=== PATIENT | female | born 1955 | race Caucasian/White ===

== ENCOUNTER 2019-08-07 13:05 | Outpatient (CLI) | payer OTHER, SELFPAY ==
--- NOTE | ~2019-08-07 | MMUS_ITS ---
EXAMINATION: MM diagnostic mikel BI w juan, US breast BI complete HISTORY: Bilateral nipple discharge TECHNIQUE: ML, MLO and cc 3-D tomosynthesis images of both breasts were performed and synthetic 2-D i mages were generated. Additional spot compression views of right breast. Rolled medial and rolled lat eral craniocaudal right mammographic views. CAD analysis was submitted and interpreted. High resoluti on complete bilateral breast ultrasound was performed. COMPARISON: 02/19/2019, 02/07/2018, 01/11/2017 bilateral digital screening mammogram examinations BREAST PARENCHYMAL COMPOSITION: There are scattered areas of fibroglandular density. FINDINGS: MAMMOGRAPHIC FINDINGS: Stable mild fibroglandular asymmetry. No interval suspicious mass, architectural distortion, malignan t calcification, skin thickening or retraction or significant new or developing density of either coy ast is evident. Occasional benign calcifications are noted. Given the history of bilateral nipple discharge, bilateral complete breast ultrasound examination was performed. ULTRASOUND: There is no evidence of focal abnormal solid or cystic lesion of either breast. Cysts are identified in the left breast at 3:00 and 11:00 position, measuring up to 4.6 and 5.5 mm ma ximal dimension, respectively. IMPRESSION: 1. No mammographic evidence of malignancy 2. Routine mammographic screening is recommended. BI-RADS Category 2: Benign finding(s). Reviewed, dictated and finalized at location A. IMPRESSION: 1. No mammographic evidence of malignancy 2. Routine mammographic screening is recommended. BI-RADS Category 2: Benign finding(s).
== END 2019-08-07 13:06 | disposition home or self-care (01) ==
PROVIDERS: PCP Nurse Practitioner Adult Health; Visit Provider Obstetrics & Gynecology
DX: N64.52 Nipple discharge (principal)
CPT/HCPCS: 76641; 77062; 77066; G0279

== ENCOUNTER → 2020-12-14 15:09 | Outpatient (CLI) | payer MEDICARE, SELFPAY ==
--- NOTE | ~2020-12-14 | MM_ITS ---
EXAMINATION: MM screening mikel BI w juan HISTORY: Screening TECHNIQUE: Craniocaudal and mediolateral oblique 3-D tomosynthesis images were obtained and synthetic 2-D images were generated. CAD analysis was submitted and interpreted. COMPARISON: Comparison to multiple prior studies sequentially, with oldest reviewed study dated 12/05. BREAST PARENCHYMAL COMPOSITION: Breast composed of scattered areas of fibroglandular density. FINDINGS: There are subtle developing asymmetries with possible architectural distortion in the subar eolar location of the right breast. The left breast is stable without evidence for malignancy. IMPRESSION: 1. Developing subtle right breast asymmetries. 2. Additional mammographic views and possible breast ultrasound are recommended. BI-RADS Category 0: Incomplete: Needs additional imaging evaluation. Reviewed, dictated and finalized at location A. IMPRESSION: 1. Developing subtle right breast asymmetries. 2. Additional mammographic views and possible breast ultrasound are recommended . BI-RADS Category 0: Incomplete: Needs additional imaging evaluation.
== END ==
PROVIDERS: PCP Nurse Practitioner Adult Health; Visit Provider Obstetrics & Gynecology
DX: Z12.31 Encounter for screening mammogram for malignant neoplasm of breast (principal); R92.0 Mammographic microcalcification found on diagnostic imaging of breast
CPT/HCPCS: 77063; 77067

== ENCOUNTER → 2020-12-18 09:11 | Outpatient (CLI) | payer MEDICARE, SELFPAY ==
--- NOTE | ~2020-12-18 | MMUS_ITS ---
EXAMINATION: MM diagnostic mikel RT w juan, US breast RT limited HISTORY: Follow-up developing right breast asymmetries TECHNIQUE: Additional 3-D tomosynthesis images of the right breast were performed and synthetic 2-D i mages were generated. CAD analysis was submitted and interpreted. High resolution Limited right breas t ultrasound was performed. COMPARISON: Comparison to multiple prior studies sequentially, with oldest reviewed study dated 12/05. BREAST PARENCHYMAL COMPOSITION: Breast composed of scattered areas of fibroglandular density. FINDINGS: MAMMOGRAPHIC FINDINGS: There are no discrete masses, calcifications or architectural distortion in the right breast to sugge st malignancy. Focal asymmetries are less apparent with spot compression and mediolateral views. ULTRASOUND: Right breast ultrasound: At 6:00 near the areola there is a 4 mm cyst. At 7-8:00, 3 cm from the nippl e, there is a slightly irregular hypoechoic mass measuring 5 mm without posterior features or interna l vascularity. At 9:00 near the nipple there is an irregular shaped hypoechoic mass measuring 8 x 6 x 5 mm without posterior features. There is marginal vascularity. Near the nipple there is a 9 mm cyst . IMPRESSION: 1. Slightly irregular shaped right breast masses by ultrasound at 7-8:00, 3 cm from the nipple measur ing 5 mm and 9:00 near the nipple measuring 8 mm. 2. Ultrasound-guided right breast biopsies recommended. BI-RADS category 4, suspicious findings. Reviewed, dictated and finalized at location A. IMPRESSION: 1. Slightly irregular shaped right breast masses by ultrasound at 7-8:00, 3 cm from the nipple measuring 5 mm and 9:00 near the nipple measuring 8 mm. 2. Ultrasound-guided right breast biopsies recommended. BI-RADS category 4, suspicious findings.
== END ==
PROVIDERS: PCP Nurse Practitioner Adult Health; Visit Provider Obstetrics & Gynecology
DX: R92.8 Other abnormal and inconclusive findings on diagnostic imaging of breast (principal)
CPT/HCPCS: 76642; 77061; 77065; G0279

== ENCOUNTER 2021-02-01 10:05 | Outpatient (CLI) | payer MEDICARE, SELFPAY ==
[2021-02-01 11:09] LABS: Anion Gap 6 mmol/L (8-16); Blood Urea Nitrogen 17 mg/dL (7-17); Calcium 9.8 mg/dL (8.4-10.2); Carbon Dioxide 30 mmol/L (22-30); Chloride 102 mmol/L (98-107); Estimated Glomerular Filt Rate > 60; Glucose 130 mg/dL (65-110); Potassium 3.3 mmol/L (3.4-5.0); Sodium 138 mmol/L (137-145)
== END 2021-02-01 10:06 | disposition home or self-care (01) ==
LOC: ANHSURGERY 10:07
PROVIDERS: Anesthesiology; PCP Nurse Practitioner Adult Health; Visit Provider Obstetrics & Gynecology
DX: Z01.818 Encounter for other preprocedural examination (principal); E11.9 Type 2 diabetes mellitus without complications
CPT/HCPCS: 36415; 80048

== ENCOUNTER 2021-02-05 01:48 | Day surgery (SDC) | payer MEDICARE, SELFPAY ==
[2021-01-25 09:08] VITALS: BMI 35.0
--- NOTE | 2021-01-25 09:16 | PC.NURSE ---
Report to the Outpatient Waiting Room, entrance under the green pavilion located off [facility], at time _1000__ on date _02/05/21_. OR Time: _1200__. - You and your visitor will be asked a series of questions to screen for COVID 19 for your protection. - A mask is required within the hospital. - Only one visitor is allowed at this time. Patient visitors will be guided where to wait when not with patient. Preoperative COVID Testing Requirements: No COVID Test needed if: (proof is required; if not received patient will have Rapid Test prior to entry) - Patient has received COVID Vaccine at least 14 days prior to procedure date or - Patient has positive COVID test result within last 90 days of surgery date. COVID Test needed if above criteria is not met If not COVID vaccinated a COVID test must be conducted within 72 hours of surgery and patient is asked to isolate self from time of testing until procedure. You will go to the [facility] for your COVID testing. The [facility] site is located at the corner of [address] [facility]. You will only be called if COVID results are positive and your surgeon may reschedule your elective surgery date. Patients may have clear liquids (water, carbonated beverages, clear teas, apple juice) until 3 hours prior to surgery (0900 AM) with a maximum of 20 ounces. - No food from midnight until time of surgery - Infants may have breast milk until 4 hours before surgery, infant formula 6 hours prior to surgery. - Children will be allowed to drink immediately following surgery. If applicable, please bring a bottle or sippy cup to assist with drinking. Juice, water, soda, and popsicles are readily available. For infants on formula, please bring formula the day of surgery. Pacifiers are allowed. Take the following medications with a SIP of water the morning of surgery: __PROPRANOLOL____ Medications to discontinue per physician __ALL VITAMINS & SUPPLEMENTS Date to take last dose___02/01/21 Please no make-up, nail maltese, hairspray, perfume, deodorant, or body powder the day of surgery. No jewelry (including any body piercings) or valuables the day of surgery, leave them at home. Please take a shower or bath the night before, or the morning of, surgery with an antibacterial soap. Wear comfortable, loose fitting clothing. Children are encouraged to wear pajamas. - Jewelry must be removed prior to entering the operating room. Rings and piercings that are not removed may be cut off. - The hospital will not accept responsibility for valuables. - Please leave all valuables, including medications, at home the day of surgery. If you are going home after surgery, a licensed catshovel driver must drive you home. - NO public transportation without another adult. - We recommend that an adult stay with you for 24 hours following discharge. - We also recommend that you do not drive, make important decision, drink alcoholic beverages, or take any drugs that were not prescribed by your health care provider for at least 24 hours after your discharge time. For Pediatric surgeries, we recommend two adults accompany the child home (only one inside the building at this time). Follow any additional instructions given to you from your surgeon. - CALL DR. LELA WILLIAMSON'S OFFICE REGARDING ASPIRIN Telephone instructions given to ___PT and asked if any additional questions and then verbalized understanding. Patient advised to call surgeon office or pre surgery nurse liaison [phone] if any additional questions.
--- NOTE | 2021-02-02 13:05 | PM.IMHP ---
H&P: HPI History of Present Illness Date/Time: 02/02/21 13:05 65 old admitted for hysteroscopy and dilatation curettage secondary to vaginal bleeding. She has a history of endometrial polyps. Ultrasound shows some fluid in the endometrial canal and she is thus admitted for the above-named procedure. Risks and benefits reviewed Chief Complaint: Postmenopausal bleed on Review of Systems Review of Systems: All systems reviewed & are unremarkable except as noted in HPI and below PMFSH Social History Social History Smoking status: Never smoker Second hand tobacco smoke exposure: No Alcohol intake: current Alcohol use details: STATES MAYBE 2-3/MONTH Substance use: never Substance use type: does not use Spiritual care concerns: No Meds Home Medications and Allergies Home Medications Medication Instructions Recorded Confirmed Type Lactobac 40-Bifido 3-S.thermop 0.5 cap PO DAILY 01/25/21 01/25/21 History [Probiotic] allopurinol 100 mg HS 01/25/21 01/25/21 History ascorbic acid (vitamin C) [Vitamin 1 cap PO DAILY 01/25/21 01/25/21 History C] aspirin [Aspir-81] 81 mg PO DAILY 01/25/21 01/25/21 History cholecalciferol (vitamin D3) 100 mcg PO DAILY 01/25/21 01/25/21 History cranberry 8,400 mg PO DAILY 01/25/21 01/25/21 History dulaglutide [Trulicity] 0.75 mg SUBCUT WEEKLY 01/25/21 01/25/21 History lisinopril-hydrochlorothiazide 1 tablet QAM 01/25/21 01/25/21 History magnesium 750 mg PO DAILY 01/25/21 01/25/21 History multivitamin [Multi-Vitamin] 1 tablet PO DAILY 01/25/21 01/25/21 History propranolol 80 mg PO QAM 01/25/21 01/25/21 History rizatriptan [Maxalt] 10 mg PO ONCE PRN 01/25/21 01/25/21 History Allergies Allergy/AdvReac Type Severity Reaction Status Date / Time codeine Allergy Severe NAUSEA AND Verified 02/24/18 09:00 VOMITING naproxen Allergy Severe GI ULCER Unverified 02/24/18 09:00 Tetanus Vaccines and Toxoid Allergy Severe Hives / Verified 02/24/18 09:00 Red Face erythromycin base Allergy Intermediate N/V Unverified 02/24/18 09:00 Penicillins Allergy Mild SEVERE RASH Unverified 02/24/18 09:00 topiramate AdvReac Unknown Numbness-TO Unverified 01/25/21 08:55 HEARD & ARMS/HANDS adhesive tape AdvReac Itching & Verified 01/25/21 08:59 BLISTERS Antihistamines - Alkylamine AdvReac Hives Verified 01/25/21 08:59 metformin AdvReac Nausea and Verified 01/25/21 08:59 Vomiting nabumetone [From Relafen] AdvReac Itching / Verified 01/25/21 08:59 RASH sitagliptin [From Januvia] AdvReac Nausea and Verified 01/25/21 08:59 Vomiting Uijmway-ONO-TlJ Reductase AdvReac SHOOTING Verified 01/25/21 08:59 Inhibitor PAINS DOWN BILATERAL LEGS PHETERMINE AdvReac Difficulty Uncoded 01/25/21 08:59 Breathing Exam Const: General: no acute distress Eyes: General: appearance normal, both eyes and all related structures Neck: Neck: supple and no JVD Thyroid: thyroid normal Resp: Effort & Inspection: normal respiratory effort Auscultation: clear to auscultation bilaterally Cardio: Rate: regular rate Rhythm: regular rhythm GI: Inspection: non-distended GI Palp: Yes Soft to palpation, No Tenderness to palpation present (GI) and No Guarding due to palpation present (GI) Auscultation: normal bowel sounds : External Female Exam: normal external appearance Speculum Exam - Vagina: normal appearance of the vagina Speculum Exam - Cervix: normal appearance of the cervix Bimanual exam- vagina & uterus: non-tender Bimanual Exam- Adnexa, other: no masses Skin: General skin exam: no rashes or lesions noted Extrem: General: normal to inspection and no edema Psych: Mental Status: mental status grossly normal Affect: normal affect Assessment and Plan Additional Plan Impression: Postmenopausal bleeding Plan: Hysteroscopy/dilatation and curettage
--- NOTE | 2021-02-05 07:03 | WPDHPUPDATE1 ---
History and Physical Update Update Date/Time: 02/05/21 07:03 History and Physical has been reviewed, including an updated exam of the patient. There are NO changes in the patient's condition. Risks, benefits, and alternatives have been discussed and questions answered. Patient agrees to proceed with procedure.
[2021-02-05] MEDS: ACETAMINOPHEN 500 MG TABLET 1000 MG PO (08:55)
[2021-02-05] MEDS: LACTATED RINGERS 1,000 ML 30 ML IV CONT (09:20)
--- NOTE | 2021-02-05 09:27 | WPDANESEPPF ---
Anes - Initial Pre Proc Eval Procedure: Operation Date: 02/05/21 10:30 Proposed Procedures p Hysteroscopy, Dilation and Curettage - Patrick Person MD Date/Time: 02/05/21 09:27 Surgeon: Patrick Person MD Pre Op Diagnosis: post menopausal bleeding Patient Data Age: 65 Gender: F Height: 1.65 m Weight: 95.45 kg Allergies Allergy/AdvReac Type Severity Reaction Status Date / Time codeine Allergy Severe NAUSEA AND Verified 02/24/18 09:00 VOMITING naproxen Allergy Severe GI ULCER Unverified 02/24/18 09:00 Tetanus Vaccines and Toxoid Allergy Severe Hives / Verified 02/24/18 09:00 Red Face erythromycin base Allergy Intermediate N/V Unverified 02/24/18 09:00 Penicillins Allergy Mild SEVERE RASH Unverified 02/24/18 09:00 topiramate AdvReac Unknown Numbness-TO Unverified 01/25/21 08:55 HEARD & ARMS/HANDS adhesive tape AdvReac Itching & Verified 01/25/21 08:59 BLISTERS Antihistamines - Alkylamine AdvReac Hives Verified 01/25/21 08:59 metformin AdvReac Nausea and Verified 01/25/21 08:59 Vomiting nabumetone [From Relafen] AdvReac Itching / Verified 01/25/21 08:59 RASH sitagliptin [From Januvia] AdvReac Nausea and Verified 01/25/21 08:59 Vomiting Lybiwih-MDQ-JkZ Reductase AdvReac SHOOTING Verified 01/25/21 08:59 Inhibitor PAINS DOWN BILATERAL LEGS PHETERMINE AdvReac Difficulty Uncoded 01/25/21 08:59 Breathing Home Medications Medication Instructions Recorded Confirmed Type Lactobac 40-Bifido 3-S.thermop 0.5 cap PO DAILY 01/25/21 02/05/21 History [Probiotic] allopurinol 100 mg HS 01/25/21 02/05/21 History ascorbic acid (vitamin C) [Vitamin 1 cap PO DAILY 01/25/21 02/05/21 History C] aspirin [Aspir-81] 81 mg PO DAILY 01/25/21 02/05/21 History cholecalciferol (vitamin D3) 100 mcg PO DAILY 01/25/21 02/05/21 History cranberry 8,400 mg PO DAILY 01/25/21 02/05/21 History dulaglutide [Trulicity] 0.75 mg SUBCUT WEEKLY 01/25/21 02/05/21 History lisinopril-hydrochlorothiazide 1 tablet QAM 01/25/21 02/05/21 History magnesium 750 mg PO DAILY 01/25/21 02/05/21 History multivitamin [Multi-Vitamin] 1 tablet PO DAILY 01/25/21 02/05/21 History propranolol 80 mg PO QAM 01/25/21 02/05/21 History rizatriptan [Maxalt] 10 mg PO ONCE PRN 01/25/21 02/05/21 History hydrocodone-acetaminophen 1 tablet PO Q4H PRN #20 tablet 02/05/21 Rx Patient hx anesthesia problems: none Family hx anesthesia problems: post op nausea/vomiting Results Review: All pre-operative results and documents have been reviewed as part of the pre-operative evaluation. [facility] Past Medical History Medical History Diabetes Hx of migraines Hyperlipidemia Hypertension Osteoarthritis Social History Social History Smoking status: Never smoker Second hand tobacco smoke exposure: No Alcohol intake: current Alcohol use details: STATES MAYBE 2-3/MONTH Substance use: never Substance use type: does not use Living arrangements: with family Spiritual care concerns: No Anes - Eval Final PreProcedure Day of Procedure 02/05/21 09:27 Patient weight: obese Heart: regular rate and rhythm Lungs: clear to auscultation Airway: Mallampati scale class II Neurological: alert and oriented Last oral intake: >/= 8 hours ASA classification: III Emergent: no Anesthetic plan: proceed Anesthesia type and monitoring: general GIVS and standard monitoring Results Review: All pre-operative results and documents have been reviewed as part of the pre-operative evaluation. Informed Consent: The patient's anesthetic plan and its attendant risks and benefits were discussed with the patient/family/POA. Questions were solicited and answers provided to the satisfaction of the patient/family/POA.
[2021-02-05 09:28] LABS: Glucose Point of Care 112 mg/dl (65-105)
[2021-02-05 09:33] VITALS: BP 153/74; PULSE 75; TEMP 36.8; O2SAT 100
--- NOTE | 2021-02-05 10:21 | W.PM.PROC2 ---
Procedure Note - Detailed Date of Procedure 02/05/21 Pre-op Diagnosis post menopausal bleeding Post-op Diagnosis same Procedure Performed Hysteroscopy/dilatation curettage/polypectomy Surgeon Patrick Person MD Anesthesia MAC and local Indications This 65-year-old female with postmenopausal bleeding Findings Uterus sounded to 8cm. Small uterine polyp was seen. Description of Procedure Patient was prepped draped in the sterile placed in the dorsal lithotomy position. Under excellent IV sedation a speculum placed in posterior fornix vagina. Anterior lip of the cervix grasped with single-tooth tenaculum and 2.5cc 1% xylocaine anesthesia placed at 2, 4, 8, 10:00 a.m. of the cervix. Uterus sounded 8cm. Serial dilatation with fragmented dilators performed followed by passes the 5mm visualizing hysteroscope. Normal saline was used as visualizing medium. A small polyp was seen at the fundus and this was grasped with the and taken in piecemeal by the uterine polyp forceps. Uterus was then scraped over the entire 360? until a good grating sound was heard. When no further tissue removed the procedure was terminated. The instruments removed. All sponge, needle, instrument counts were correct. There were no immediate complications Estimated Blood Loss 5 Drains No Packing No Pathology yes Complications No immediate complications Condition stable Disposition PACU
[2021-02-05 10:23] VITALS: BP 166/72; PULSE 74; RESP 14; O2SAT 97
[2021-02-05 10:42] LABS: Glucose Point of Care 96 mg/dl (65-105)
[2021-02-05 11:00] VITALS: BP 167/87; PULSE 66; RESP 16
== END 2021-02-05 11:15 | disposition home or self-care (01) ==
PROVIDERS: PCP Nurse Practitioner Adult Health; Visit Provider Obstetrics & Gynecology
PROC: 0U5B8ZZ Destruction of Endometrium, Via Natural or Artificial Opening Endoscopic (ICD-10-PCS; CPT 58563; principal; 2021-02-05 10:30)
DX: C54.1 Malignant neoplasm of endometrium (principal); N84.0 Polyp of corpus uteri; N95.0 Postmenopausal bleeding; Z79.82 Long term (current) use of aspirin; E11.9 Type 2 diabetes mellitus without complications; I10 Essential (primary) hypertension; M19.90 Unspecified osteoarthritis, unspecified site; E78.5 Hyperlipidemia, unspecified; E66.9 Obesity, unspecified; Z68.35 Body mass index [BMI] 35.0-35.9, adult
CPT/HCPCS: 58558; 82948; 88305; A9270; J2250; J2704; J3010; J7030; J7120

== ENCOUNTER 2021-02-15 12:54 | Outpatient (CLI) | payer MEDICARE, SELFPAY ==
--- NOTE | ~2021-02-15 | CT_ITS ---
EXAMINATION: CT abdomen pelvis w con DATE: 02/15/2021 13:19 INDICATION: Endometrioid adenocarcinoma. TECHNIQUE: Computed tomography (CT) of the abdomen and pelvis was performed [address] The dose-length product was 876.12 mGy-cm. Automated exposure control and iterative reconstructio n technique were employed. COMPARISON: None. FINDINGS: Lung bases are unremarkable. Heart size is normal. No significant pleural or pericardial ef fusion. There is a possible 3 mm distal right ureteral stone near the UVJ. No significant hydronephro sis. Fatty infiltration of the liver. Status post cholecystectomy. There are calcified granulomas of the s pleen. The pancreas, adrenal glands and kidneys are unremarkable. Nonobstructive bowel gas pattern. C olonic diverticulosis without evidence for diverticulitis. No free air or free fluid. Small amount of gas in the bladder lumen, likely from prior instrumentation. Clinically correlate. There is a hetero geneous hypodense appearance to the endometrium, compatible with known endometrioid adenocarcinoma. M ild osteoarthritis of the hips. Mild lumbar spondylosis. No focal lytic or blastic lesions. No signif icant vascular abnormality. No abdominal or pelvic lymphadenopathy. IMPRESSION: 1. Possible 3 mm distal right ureteral stone near the UVJ. This may also represents a small pelvic ph lebolith adjacent to the ureter. No associated hydronephrosis. 2: Heterogeneous appearance to the endometrium which appears thickened, compatible with known endome trioid adenocarcinoma. Reviewed, dictated and finalized at location A. [facility] IMPRESSION: 1. Possible 3 mm distal right ureteral stone near the UVJ. This may also repres ents a small pelvic phlebolith adjacent to the ureter. No associated hydronephr osis. 2: Heterogeneous appearance to the endometrium which appears thickened, compat ible with known endometrioid adenocarcinoma.
== END 2021-02-15 12:55 | disposition home or self-care (01) ==
LOC: ANHIMG 12:58
PROVIDERS: PCP Nurse Practitioner Adult Health; Visit Provider Obstetrics & Gynecology
DX: C54.1 Malignant neoplasm of endometrium (principal); Z90.49 Acquired absence of other specified parts of digestive tract; K57.30 Diverticulosis of large intestine without perforation or abscess without bleeding; M16.0 Bilateral primary osteoarthritis of hip
CPT/HCPCS: 74177; Q9967

== ENCOUNTER 2021-03-24 11:24 | Outpatient (CLI) | payer MEDICARE, SELFPAY ==
--- NOTE | 2021-03-24 11:30 | ECG_ITS ---
Measurements Intervals [place] Rate: 73 P: 51 AL: 177 QRS: 28 QRSD: 101 T: 23 QT: 389 QTc: 430 Interpretive Statements SINUS RHYTHM BORDERLINE ST-T WAVE ABNORMALITY- INFERIOR LEADS BASELINE ARTIFACT- I, II, III, AVR, AVL, AVF BORDERLINE ECG Electronically Signed On 03-24-2021 11:43:05 TEACHER'S AIDE by Sanjay Nair D.O.
[2021-03-24 11:49] LABS: Basophils Absolute Auto 0.1 K/mm3 (0.0-0.1); Basophils Percent Auto 0.8 % (0.2-1.2); Eosinophils Absolute Auto 0.3 K/mm3 (0-0.3); Hematocrit 40.2 % (37.0-47.0); Hemoglobin 14.5 g/dL (12.0-15.0); Immature Granulocyte Absolute 0.02 K/mm3 (0.00-0.031); Immature Granulocyte Percent A 0.2 % (0-0.5); Lymphocytes Absolute Auto 1.71 K/mm3 (0.9-3.2); Lymphocytes Percent Auto 19.9 % (18.3-44.2); Mean Corpuscular HGB Conc 36.1 g/dl (32-36); Mean Corpuscular Hemoglobin 32.4 pg (26-34); Mean Corpuscular Volume 89.9 fl (80-100); Mean Platelet Volume 10.3 fl (7.4-10.4); Monocytes Absolute Auto 0.6 K/mm3 (0.1-0.6); Monocytes Percent Auto 6.6 % (2.6-8.5); Neutrophils Percent Auto 69.5 % (45.5-73.1); Platelet Count Result 317 k/mm3 (150-375); Red Blood Count 4.47 M/mm3 (4.2-5.4); Red Cell Distribution Width 13.3 % (11.5-14.5); White Blood Count 8.6 K/mm3 (4.5-10.0)
== END 2021-03-24 11:25 | disposition home or self-care (01) ==
LOC: ANHSURGERY 11:26
PROVIDERS: PCP Nurse Practitioner Adult Health; Visit Provider Obstetrics & Gynecology
DX: Z01.818 Encounter for other preprocedural examination (principal); C54.1 Malignant neoplasm of endometrium; I10 Essential (primary) hypertension
CPT/HCPCS: 36415; 85025; 86850; 86870; 86880; 86900; 86901; 86902; 86905; 86971; 93005

== ENCOUNTER 2021-03-26 01:27 | Day surgery (SDC) | payer MEDICARE, SELFPAY ==
[2021-03-24 08:54] VITALS: BMI 35.2
--- NOTE | 2021-03-24 09:03 | PC.NURSE ---
Report to the Outpatient Waiting Room, entrance under the green pavilion located off [facility], at time ___7:30am____ on date __03/26/21 . OR Time: __9:30am . - You and your visitor will be asked a series of questions to screen for COVID 19 for your protection. - A mask is required within the hospital. - Only one visitor is allowed at this time. Patient visitors will be guided where to wait when not with patient. Preoperative COVID Testing Requirements: No COVID Test needed if: (proof is required; if not received patient will have Rapid Test prior to entry) - Patient has received COVID Vaccine at least 14 days prior to procedure date or - Patient has positive COVID test result within last 90 days of surgery date. COVID Test needed if above criteria is not met If not COVID vaccinated a COVID test must be conducted within 72 hours of surgery and patient is asked to isolate self from time of testing until procedure. You will go to the [facility] Testing [facility] for your COVID testing. The [facility] Testing site is located at the corner of [address] [facility]. You will only be called if COVID results are positive and your surgeon may reschedule your elective surgery date. Patients may have clear liquids (water, carbonated beverages, clear teas, apple juice) until 3 hours prior to surgery with a maximum of 20 ounces. - No food from midnight until time of surgery - Infants may have breast milk until 4 hours before surgery, infant formula 6 hours prior to surgery. - Children will be allowed to drink immediately following surgery. If applicable, please bring a bottle or sippy cup to assist with drinking. Juice, water, soda, and popsicles are readily available. For infants on formula, please bring formula the day of surgery. Pacifiers are allowed. Take the following medications with a SIP of water the morning of surgery: __PROPRANOLOL, MAXALT NEEDED Medications to discontinue per physician ASPIRIN 2 DAYS PRE-OP PER DR CARLISLE, ALL VITAMINS/SUPPLEMENTS 3 DAYS PRE-OP Date to take last dose Please no make-up, nail telugu, hairspray, perfume, deodorant, or body powder the day of surgery. No jewelry (including any body piercings) or valuables the day of surgery, leave them at home. Please take a shower or bath the night before, or the morning of, surgery with an antibacterial soap. Wear comfortable, loose fitting clothing. Children are encouraged to wear pajamas. - Jewelry must be removed prior to entering the operating room. Rings and piercings that are not removed may be cut off. - The hospital will not accept responsibility for valuables. - Please leave all valuables, including medications, at home the day of surgery. If you are going home after surgery, a licensed transport truck driver must drive you home. - NO public transportation without another adult. - We recommend that an adult stay with you for 24 hours following discharge. - We also recommend that you do not drive, make important decision, drink alcoholic beverages, or take any drugs that were not prescribed by your health care provider for at least 24 hours after your discharge time. For Pediatric surgeries, we recommend two adults accompany the child home (only one inside the building at this time). Follow any additional instructions given to you from your surgeon. Telephone instructions given to ___PATIENT and asked if any additional questions and then verbalized understanding. Patient advised to call surgeon office or pre surgery nurse liaison [phone] if any additional questions.
--- NOTE | 2021-03-24 11:48 | PM.IMHP ---
H&P: HPI History of Present Illness Date/Time: 03/24/21 11:48 66-year-old female status post hysteroscopy D&C which showed grade 1 endometrial cancer in a polyp. She is admitted for hysterectomy bilateral salpingo-oophorectomy. Risks and benefits reviewed including not exclusive , aspiration pneumonia, bleeding, transfusion, perforation injury to bowel, bladder, ureters, or other internal organs with need for open laparotomy. She received the [employer] handout entitled hysterectomy as well since the [facility] handout. She had all questions answered and asked to proceed Chief Complaint: Grade 1 endometrial cancer Review of Systems Review of Systems: All systems reviewed & are unremarkable except as noted in HPI and below PMFSH Past Medical History Medical History Diabetes Hx of migraines Hyperlipidemia Hypertension Osteoarthritis Social History Social History Smoking status: Never smoker Second hand tobacco smoke exposure: No Alcohol intake: current Alcohol use details: STATES MAYBE 2-3/MONTH Substance use: never Substance use type: does not use Additional living arrangements comments: [facility] Spiritual care concerns: No Meds Home Medications and Allergies Home Medications Medication Instructions Recorded Confirmed Type Lactobac 40-Bifido 3-S.thermop 0.5 cap PO DAILY 01/25/21 03/24/21 History [Probiotic] allopurinol 100 mg PO HS 01/25/21 03/24/21 History ascorbic acid (vitamin C) [Vitamin 1 cap PO DAILY 01/25/21 03/24/21 History C] aspirin [Aspir-81] 81 mg PO DAILY 01/25/21 03/24/21 History cholecalciferol (vitamin D3) 100 mcg PO DAILY 01/25/21 03/24/21 History cranberry 8,400 mg PO DAILY 01/25/21 03/24/21 History dulaglutide [Trulicity] 0.75 mg SUBCUT WEEKLY 01/25/21 03/24/21 History lisinopril-hydrochlorothiazide 1 tablet PO QAM 01/25/21 03/24/21 History magnesium 750 mg PO DAILY 01/25/21 03/24/21 History multivitamin [Multi-Vitamin] 1 tablet PO DAILY 01/25/21 03/24/21 History propranolol 80 mg PO QAM 01/25/21 03/24/21 History rizatriptan [Maxalt] 10 mg PO ONCE PRN 01/25/21 03/24/21 History loratadine [Claritin] 5 mg PO BID 03/24/21 03/24/21 History omeprazole [Prilosec] 10 mg PO DAILY PRN 03/24/21 03/24/21 History Allergies Allergy/AdvReac Type Severity Reaction Status Date / Time Tetanus Vaccines and Toxoid Allergy Severe Hives / Verified 03/24/21 08:45 Red Face Penicillins Allergy Intermediate Rash Verified 03/24/21 08:45 topiramate Allergy Unknown Numbness-TO Verified 03/24/21 08:45 HEAD & ARMS/HANDS Antihistamines - Alkylamine Allergy Hives Verified 03/24/21 08:45 iohexol Allergy Hives Verified 03/24/21 08:46 [From contrast - CT, X-RAY] nabumetone [From Relafen] Allergy Itching / Verified 03/24/21 08:45 RASH codeine AdvReac Severe NAUSEA AND Verified 03/24/21 08:45 VOMITING naproxen AdvReac Severe GI ULCER Verified 03/24/21 08:45 adhesive tape AdvReac Intermediate Itching & Verified 03/24/21 08:45 BLISTERS erythromycin base AdvReac Intermediate N/V Verified 03/24/21 08:45 metformin AdvReac Nausea and Verified 03/24/21 08:45 Vomiting sitagliptin [From Januvia] AdvReac Nausea and Verified 03/24/21 08:45 Vomiting Xeotxcz-VUR-WdQ Reductase AdvReac SHOOTING Verified 03/24/21 08:45 Inhibitor PAINS DOWN BILATERAL LEGS PHETERMINE Allergy Severe Difficulty Uncoded 03/24/21 08:45 Breathing Exam Const: General: no acute distress Eyes: General: appearance normal, both eyes and all related structures Neck: Neck: supple and no JVD Thyroid: thyroid normal Resp: Effort & Inspection: normal respiratory effort Auscultation: clear to auscultation bilaterally Cardio: Rate: regular rate Rhythm: regular rhythm GI: Inspection: non-distended GI Palp: Yes Soft to palpation, No Tenderness to palpation present
--- NOTE | 2021-03-25 15:02 | WPDANESEPPF ---
Anes - Initial Pre Proc Eval Procedure: Operation Date: 03/26/21 09:30 Proposed Procedures p Robotic Assisted Total Vaginal Hysterectomy with Bilateral Salpingo Oophorectomy - Patrick Person MD <Kalen Johnston, DO - Last Filed: 03/27/21 13:00> Date/Time: 03/25/21 15:02 <Kalen Johnston, DO - Last Filed: 03/27/21 13:00> Surgeon: Patrick Person MD <Kalen Johnston, DO - Last Filed: 03/27/21 13:00> Pre Op Diagnosis: endometroid CA grade 1 <Kalen Johnston DO - Last Filed: 03/27/21 13:00> Patient Data Age: 66 Gender: F Height: 1.65 m Weight: 96 kg <Kalen Johnston DO - Last Filed: 03/27/21 13:00> Allergies Allergy/AdvReac Type Severity Reaction Status Date / Time Antihistamines - Alkylamine Allergy Severe Hives Verified 03/26/21 08:25 iohexol Allergy Severe Hives Verified 03/26/21 08:25 [From contrast - CT, X-RAY] phentermine Allergy Severe Difficulty Verified 03/27/21 07:59 Breathing Tetanus Vaccines and Toxoid Allergy Severe Hives / Verified 03/24/21 08:45 Red Face topiramate Allergy Unknown Numbness-TO Verified 03/24/21 08:45 HEAD & ARMS/HANDS codeine AdvReac Severe NAUSEA AND Verified 03/24/21 08:45 VOMITING naproxen AdvReac Severe GI ULCER Verified 03/24/21 08:45 adhesive tape AdvReac Intermediate Itching & Verified 03/24/21 08:45 BLISTERS erythromycin base AdvReac Intermediate N/V Verified 03/24/21 08:45 metformin AdvReac Intermediate Nausea and Verified 03/26/21 08:25 Vomiting Penicillins AdvReac Intermediate Rash Verified 03/26/21 08:25 sitagliptin [From Januvia] AdvReac Intermediate Nausea and Verified 03/26/21 08:25 Vomiting [id number] Reductase AdvReac Intermediate SHOOTING Verified 03/26/21 08:25 Inhibitor PAINS DOWN BILATERAL LEGS nabumetone [From Relafen] AdvReac Mild Itching / Verified 03/26/21 08:25 RASH <Kalen Johnston DO - Last Filed: 03/27/21 13:00> Home Medications Medication Instructions Recorded Confirmed Type Lactobac 40-Bifido 3-S.thermop 0.5 cap PO DAILY 01/25/21 03/26/21 History [Probiotic] allopurinol 100 mg PO HS 01/25/21 03/26/21 History ascorbic acid (vitamin C) [Vitamin 1 cap PO DAILY 01/25/21 03/26/21 History C] aspirin [Aspir-81] 81 mg PO DAILY 01/25/21 03/26/21 History cholecalciferol (vitamin D3) 100 mcg PO DAILY 01/25/21 03/26/21 History cranberry 8,400 mg PO DAILY 01/25/21 03/26/21 History dulaglutide [Trulicity] 0.75 mg SUBCUT WEEKLY 01/25/21 03/26/21 History lisinopril-hydrochlorothiazide 1 tablet PO QAM 01/25/21 03/26/21 History magnesium 750 mg PO DAILY 01/25/21 03/26/21 History multivitamin [Multi-Vitamin] 1 tablet PO DAILY 01/25/21 03/26/21 History propranolol 80 mg PO QAM 01/25/21 03/26/21 History rizatriptan [Maxalt] 10 mg PO ONCE PRN 01/25/21 03/24/21 History loratadine [Claritin] 5 mg PO BID 03/24/21 03/26/21 History omeprazole [Prilosec] 10 mg PO DAILY PRN 03/24/21 03/26/21 History hydrocodone-acetaminophen 1 tablet PO Q4H PRN #20 tablet 03/26/21 Rx <Kalen Johnston, - Last Filed: 03/27/21 13:00> Patient hx anesthesia problems: none <Lelia Hare CRNA - Last Filed: 03/26/21 09:01> Family hx anesthesia problems: post op nausea/vomiting <Lelia Hare CRNA - Last Filed: 03/26/21 09:01> Results Review: All pre-operative results and documents have been reviewed as part of the pre-operative evaluation. <Kalen Johnston, - Last Filed: 03/27/21 13:00> [facility] Past Medical History Medical History: Medical History Diabetes Hx of migraines Hyperlipidemia Hypertension Osteoarthritis PONV (postoperative nausea and vomiting) <Kalen Johnston DO - Last Filed: 03/27/21 13:00> Surgical History Surgical History: Surgical History
[2021-03-26] VITALS (14 sets, daily range): BP systolic 129–167; BP diastolic 55–87; PULSE 60–85; RESP 8–20; TEMP 36.1–36.8; O2SAT 98–100
--- NOTE | 2021-03-26 07:17 | WPDHPUPDATE1 ---
History and Physical Update Update Date/Time: 03/26/21 07:17 History and Physical has been reviewed, including an updated exam of the patient. There are NO changes in the patient's condition. Risks, benefits, and alternatives have been discussed and questions answered. Patient agrees to proceed with procedure.
[2021-03-26] MEDS: ACETAMINOPHEN 500 MG TABLET 1000 MG PO (08:27)
[2021-03-26] MEDS: LACTATED RINGERS 1,000 ML 30 ML IV CONT ×2 (08:35→10:49)
[2021-03-26 08:46] LABS: Glucose Point of Care 137 mg/dl (65-105)
[2021-03-26] MEDS: ceFAZolin 2 GM/D5W 50 ML 2 GM/50 ML BAG IVPB (09:22)
--- NOTE | 2021-03-26 10:38 | W.PM.PROC2 ---
Procedure Note - Detailed Date of Procedure 03/26/21 Pre-op Diagnosis endometroid CA grade 1 Post-op Diagnosis same Procedure Performed Robotic total vaginal hysterectomy and bilateral salpingo-oophorectomy Surgeon Patrick Person MD Anesthesia general Indications This is a 66-year-old female status post hysteroscopy with removal of endometrial grade 1 adenocarcinoma in a polyp. Findings Normal-appearing uterus ovaries and tubes Description of Procedure Patient was prepped draped in normal sterile fashion placed in dorsal lithotomy position. Weighted speculum placed in posterior fornix vagina. Anterior lip of cervix grasped with single-tooth tenaculum and uterus sounded 10cm. Serial dilatation with fragmented dilators performed followed passes of the 10. HERNAN and the 3. Cold cup. Next a 16 [place] catheter was placed in bladder and drained of clear urine. The remainder the instruments removed and gloves were changed. A supraumbilical incision made the Veress needle passed in the abdomen. Abdomen filled with CO2 gas [id number]. 8mm trocar advanced under in the abdomen downside visualized no injury seen. Gas reattached patient placed in Trendelenburg and left and right lateral quadrant incisions made. 8mm trocars were direct visualization assuring no injury. Right upper quadrant incision made the 8mm trocar advanced under direct visualization assuring no injury. The robot was docked. Attention was turned to the console. The left round ligament was grasped, burned, cut. Anterior bladder flap was formed by sharply dissecting the peritoneum and reflecting the bladder caudally away from the cervix uterus to the opposite round ligament was clamped, next the left infundibulopelvic structure was skeletonized to remove the left ovary and tube. This was clamped, burned, cut and brought up to the level of the previously cut round ligament. Removing the right ovary and tube the infundibulopelvic structure was skeletonized. This was clamped, burned, and brought to the level of previously cut round ligament. Cardinal broad ligaments on the left were serially skeletonized clamped burned by hugging the cervix and uterus and to the uterine vessels could be seen left. These were large and tortuous and were individually clamped, burned,. In like fashion cardinal broad ligaments on the right were serially skeletonized clamped burned cut hugging the cervix uterus until the uterine vessels could be seen on the right. These were large and tortuous and individually clamped, burned, cut. Blanching of the uterus was seen a colpotomy incision made cervix uterus ovaries and tubes removed through the vagina. Blood loss estimated at25cc. The vagina was closed with continuous running 0V lock from lateral edge to lateral edge back to the midline. Irrigation undertaken until clear and [place] term placed over the raw surface areas. All pedicles appeared dry and the instruments removed. The gas removed from the abdomen after the robot was undocked. The incisions closed with 4 Monocryl and glue. Patient was awakened went to recovery in satisfactory condition. All sponge, needle, instrument counts were correct. There were no immediate complications noted Estimated Blood Loss 25 Drains No Packing No Pathology yes Complications No immediate complications Condition stable Disposition PACU
[2021-03-26 11:19] LABS: Glucose Point of Care 147 mg/dl (65-105)
[2021-03-26] MEDS: DEXTROSE 5%/LACTATED RINGERS 1,000 ML 125 ML IV CONT (12:47)
[2021-03-26] MEDS: KETOROLAC 30 MG/ML VIAL (*BKC) IV PUSH (12:47)
--- NOTE | 2021-03-26 14:34 | ADMGEN ---
1215-This patient, Dena Rojas, was admitted to OB 2nd Floor Room 280-00. Patient/family oriented to hospital policies and general routines including ID bracelet, bed and alarms, visiting hours, pain management, procedures, bathroom and other care routines, personal items, smoking policy, room service/diet, and visiting hours. Information on how to activate the Rapid Response Team has been discussed. Patient/Family are encouraged to report perceived risks to care and to ask questions if they do not understand what they are told or what they should do.
[2021-03-26] MEDS: DOCUSATE SODIUM 100 MG CAPSULE PO (17:46)
[2021-03-27 04:16] VITALS: BP 132/60; PULSE 80; RESP 18; TEMP 36.7; O2SAT 100
[2021-03-27 06:02] LABS: Basophils Percent Auto 0.2 % (0.2-1.2); Eosinophils Percent Auto 0.1 % (0-4.4); Hematocrit 33.9 % (37.0-47.0); Immature Granulocyte Absolute 0.07 K/mm3 (0.00-0.031); Immature Granulocyte Percent A 0.4 % (0-0.5); Lymphocytes Absolute Auto 1.17 K/mm3 (0.9-3.2); Lymphocytes Percent Auto 7.1 % (18.3-44.2); Mean Corpuscular HGB Conc 35.4 g/dl (32-36); Mean Corpuscular Hemoglobin 31.7 pg (26-34); Mean Corpuscular Volume 89.7 fl (80-100); Mean Platelet Volume 10.6 fl (7.4-10.4); Monocytes Absolute Auto 0.8 K/mm3 (0.1-0.6); Neutrophils Absolute Auto 14.4 K/mm3 (1.3-6.7); Neutrophils Percent Auto 87.2 % (45.5-73.1); Platelet Count Result 281 k/mm3 (150-375); Red Blood Count 3.78 M/mm3 (4.2-5.4); Red Cell Distribution Width 13.1 % (11.5-14.5); White Blood Count 16.5 K/mm3 (4.5-10.0)
--- NOTE | 2021-03-27 07:21 | PM.DS ---
DS: Admitting Diagnosis Discharge Date 03/27/21 Admitting Diagnosis endometrial adenocarcinoma DS: Summary Hospital Course Hospital Course: 66-year-old female status post hysteroscopy D&C which showed grade 1 endometrial cancer in a polyp. She is admitted for hysterectomy bilateral salpingo-oophorectomy. The above procedure was performed with no complications. She is doing well post op. She states her pain is well controlled with PO medications. She reports minimal bleeding. She is ambulating up to the chair. Her higuera catheter was removed. She is tolerating PO without N/V. She reports passing flatus. Status at Discharge Overall status at discharge: patient is progressing back to baseline Time Spent with Patient Time attestation: Total time spent providing and/or coordinating discharge services: Time spent: Less than 30 minutes Exam Const: General: comfortable and no acute distress Limitations: no limitations Resp: Effort & Inspection: normal respiratory effort Auscultation: clear to auscultation bilaterally Cardio: Rate: regular rate Rhythm: regular rhythm GI: Inspection: non-distended GI Palp: Yes Soft to palpation, Yes Tenderness to palpation present (GI) (milder tenderness to deep palpation) and No Guarding due to palpation present (GI) Auscultation: normal bowel sounds Other: incisions C/D/I covered with dermabond Urinary Catheter: Urinary Catheter: urine clear Skin: General skin exam: normal color Extrem: General: normal to inspection Psych: Mental Status: mental status grossly normal Affect: normal affect DS: Data Data Completed and Pending Pending studies at discharge: Pending at discharge 03/26/21 10:06 Surgical [PTH] Routine Labs on day of discharge: Labs from last 24 hours 03/27/21 03/26/21 03/26/21 04:08 11:15 08:43 WBC 16.5 H RBC 3.78 L Hgb 12.0 Hct 33.9 L MCV 89.7 MCH 31.7 MCHC 35.4 RDW 13.1 Plt Count 281 MPV 10.6 H Immature Gran % (Auto) 0.4 Neut % (Auto) 87.2 H Lymph % (Auto) 7.1 L [place] % (Auto) 5.0 Eos % (Auto) 0.1 Baso % (Auto) 0.2 Lymph # (Auto) 1.17 [place] # (Auto) 0.8 H Eos # (Auto) 0.0 Baso # (Auto) 0.0 Abs Immat Gran (auto) 0.07 H Absolute Neuts (auto) 14.4 H Absolute Nucleated RBC 0.0 Nucleated RBC % 0.0 POC Capillary Glucose 147 H 137 H Discharge Plan Discharge Patient Disposition: Home, Self-Care Patient Instructions: Laparoscopic Hysterectomy (DC) Stand Alone Forms: General Discharge Instructions Follow-up/Referrals: Patrick Person MD [Physician] - Discharge Medications: New hydrocodone-acetaminophen 5-325 mg tablet 1 tablet PO Q4H PRN (Reason: pain) Qty: 20 RF: 0 No Action Claritin 10 mg Tablet,Chewable 5 mg PO BID RF: 0 omeprazole [Prilosec] 10 mg Capsule,Delayed Release(Dr/Ec) 10 mg PO DAILY PRN (Reason: Indigestion) RF: 0 multivitamin [Multi-Vitamin] Tablet 1 tablet PO DAILY RF: 0 magnesium 500 mg Tablet 750 mg PO DAILY RF: 0 rizatriptan [Maxalt] 10 mg Tablet 10 mg PO ONCE PRN (Reason: Migraine Headache) RF: 0 allopurinol 100 mg tablet 100 mg PO HS RF: 0 aspirin [Aspir-81] 81 mg Tablet,Delayed Release (Dr/Ec) 81 mg PO DAILY RF: 0 lisinopril-hydrochlorothiazide 20-25 mg tablet 1 tablet PO QAM RF: 0 Vitamin C 1,000 mg Capsule, Extended Release 1 cap PO DAILY RF: 0 cranberry 1,000 mg Capsule 8,400 mg PO DAILY RF: 0 propranolol 80 mg Capsule,Extended Release 24hr 80 mg PO QAM RF: 0 cholecalciferol (vitamin D3) 100 mcg (4,000 unit) Capsule 100 mcg PO DAILY RF: 0 Trulicity 0.75 mg/0.5 mL pen injector 0.75 mg SUBCUT WEEKLY RF: 0 Probiotic 100 billion cell Capsule 0.5 cap PO DAILY RF: 0
[2021-03-27] MEDS: IBUPROFEN 600 MG TABLET PO (08:59)
[2021-03-27] MEDS: ENOXAPARIN 40 MG/0.4 ML SYRINGE SUB-Q (08:59)
[2021-03-27] MEDS: DOCUSATE SODIUM 100 MG CAPSULE PO (08:59)
[2021-03-27 09:00] VITALS: BP 167/71; PULSE 78; RESP 18; TEMP 37
== END 2021-03-27 09:13 | disposition home or self-care (01) ==
LOC: ANHSURGERY 07:20 → ANHOB2 12:10
PROVIDERS: PCP Nurse Practitioner Adult Health; Visit Provider Obstetrics & Gynecology
PROC: (CPT 58552; principal; 2021-03-26 09:30)
DX: C54.1 Malignant neoplasm of endometrium (principal); D25.9 Leiomyoma of uterus, unspecified; N80.0 Endometriosis of uterus; E11.9 Type 2 diabetes mellitus without complications; I10 Essential (primary) hypertension; E78.5 Hyperlipidemia, unspecified; M19.90 Unspecified osteoarthritis, unspecified site; Z79.82 Long term (current) use of aspirin; Z79.899 Other long term (current) drug therapy
CPT/HCPCS: 58552; S2900; 36415; 82948; 85025; 88307; 99199; A9270; J0330; J0690; J1100; J1650; J1885; J2250; J2270; J2405; J2704; J7030; J7120; J7121

== ENCOUNTER 2022-05-16 09:29 | Emergency (ER) | payer MEDICARE, SELFPAY ==
--- NOTE | ~2022-05-16 | XR_ITS ---
EXAMINATION: XR elbow LT min 3V DATE: 05/16/2022 10:44 INDICATION: Posterolateral left elbow pain and limited range of motion post fall TECHNIQUE: Anteroposterior, two oblique and lateral views of the left elbow were obtained. COMPARISON: None. FINDINGS: There is an approximately 4-5 mm linear cortical fragment projecting alongside the neck of the proxim al radius with donor site along the radial head involving a portion of the surface of the proximal ra dioulnar articulation. The surface of the radial head articulating with the capitellum appears to rem ain intact. Alignment remains otherwise normal. No other fractures identified. Left elbow joint effus ion is present. Soft tissues are unremarkable. IMPRESSION: 1. Intra-articular fracture of the left radial head involving a small portion of the cortex associate d with the proximal radioulnar joint without evident involvement of the radiocapitellar articulation. 2. Left elbow joint effusion. Reviewed, dictated and finalized at location B. IMPRESSION: 1. Intra-articular fracture of the left radial head involving a small portion o f the cortex associated with the proximal radioulnar joint without evident invo lvement of the radiocapitellar articulation. 2. Left elbow joint effusion.
[2022-05-16 09:33] VITALS: BP 182/72; PULSE 86; RESP 18; TEMP 36.9; O2SAT 99
--- NOTE | 2022-05-16 10:04 | ED.FALL ---
HPI - Fall General Chief Complaint: Fall Stated Complaint: left elbow pain r/t fall Time Seen by Provider: 05/16/22 09:32 Source: patient Mode of arrival: ambulatory Limitations: no limitations History of Present Illness HPI Narrative: Patient is a 67 y/o female who presents to the ED with c/o fall. Patient reports she tripped on an uneven patch of sidewalk this morning, falling forward. She was holding her grandchild at that time. She denied any head injury or LOC. She denied any prodromal symptoms prior to the fall. She complains of pain to her left elbow, worse with rotating her forearm. She also sustained abrasions to bilateral palms. She denies any further injury or areas of pain. Denies any headache, dizziness, lightheadedness, vision changes, abdominal pain, rib pain, nausea, vomiting, hip pain, shoulder pain, wrist pain, back pain, neck pain. Patient has allergy to tetanus vaccine. Related Data Home Medications Medication Instructions Recorded Confirmed Lactobacillus 40-Bifidobact 0.5 cap PO DAILY 01/25/21 03/26/21 3-S.thermophilus 100 billion cell capsule (Probiotic) allopurinol 100 mg tablet 100 mg PO HS 01/25/21 03/26/21 ascorbic acid (vitamin C) 1,000 mg 1 cap PO DAILY 01/25/21 03/26/21 capsule,extended release aspirin 81 mg tablet,delayed 81 mg PO DAILY 01/25/21 03/26/21 release cholecalciferol (vitamin D3) 100 100 mcg PO DAILY 01/25/21 03/26/21 mcg (4,000 unit) capsule cranberry 1,000 mg capsule 8,400 mg PO DAILY 01/25/21 03/26/21 dulaglutide 0.75 mg/0.5 mL 0.75 mg subcut WEEKLY 01/25/21 03/26/21 subcutaneous pen injector (Trulicity) lisinopril 20 1 tablet PO QAM 01/25/21 03/26/21 mg-hydrochlorothiazide 25 mg tablet magnesium 500 mg tablet 750 mg PO DAILY 01/25/21 03/26/21 multivitamin 1 tablet PO DAILY 01/25/21 03/26/21 propranolol 80 mg capsule,extended 80 mg PO QAM 01/25/21 03/26/21 release 24 hr rizatriptan 10 mg tablet (Maxalt) 10 mg PO ONCE PRN Migraine Headache 01/25/21 03/24/21 loratadine 10 mg chewable tablet 5 mg PO BID 03/24/21 03/26/21 (Claritin) omeprazole 10 mg capsule,delayed 10 mg PO DAILY PRN Indigestion 03/24/21 03/26/21 release Allergies Allergy/AdvReac Type Severity Reaction Status Date / Time Antihistamines - Alkylamine Allergy Severe Hives Verified 03/26/21 08:25 iohexol Allergy Severe Hives Verified 03/26/21 08:25 [From contrast - CT, X-RAY] phentermine Allergy Severe Difficulty Verified 03/27/21 07:59 Breathing Tetanus Vaccines and Toxoid Allergy Severe Hives / Verified 03/24/21 08:45 Red Face topiramate Allergy Unknown Numbness-TO Verified 03/24/21 08:45 HEAD & ARMS/HANDS codeine AdvReac Severe NAUSEA AND Verified 03/24/21 08:45 VOMITING naproxen AdvReac Severe GI ULCER Verified 03/24/21 08:45 adhesive tape AdvReac Intermediate Itching & Verified 03/24/21 08:45 BLISTERS erythromycin base AdvReac Intermediate N/V Verified 03/24/21 08:45 metformin AdvReac Intermediate Nausea and Verified 03/26/21 08:25 Vomiting Penicillins AdvReac Intermediate Rash Verified 03/26/21 08:25 sitagliptin [From Januvia] AdvReac Intermediate Nausea and Verified 03/26/21 08:25 Vomiting Bdauodx-[id number]-IzA Reductase AdvReac Intermediate SHOOTING Verified 03/26/21 08:25 Inhibitor PAINS DOWN BILATERAL LEGS nabumetone [From Relafen] AdvReac Mild Itching / Verified 03/26/21 08:25 RASH Review of Systems Review of Systems: CONSTITUTIONAL: Denies fever, chills, or sweats. EYES: Denies visual changes. CARDIOVASCULAR: Denies chest pain. RESPIRATORY: Denies dyspnea. GASTROINTESTINAL: Denies abdominal pain, nausea, vomiting. SKIN: See HPI. MUSCULOSKELETAL: See HPI. NEUROLOGIC: Denies head injury, LOC, dizziness, lightheadedness, headache, numbness, or weakness. All systems reviewed & are unremarkable except as noted in HPI and below PMFSH Past Medical History Medical History (Reviewed 05/16/22 @ 14:23 by Sera Urbina
[2022-05-16] MEDS: IBUPROFEN 600 MG TABLET PO (10:16)
== END 2022-05-16 11:43 | disposition home or self-care (01) ==
PROVIDERS: Emergency Provider Physician Assistant; PCP Physician Assistant
DX: S52.122A Displaced fracture of head of left radius, initial encounter for closed fracture (principal); S60.512A Abrasion of left hand, initial encounter; S60.511A Abrasion of right hand, initial encounter; E11.9 Type 2 diabetes mellitus without complications; E78.5 Hyperlipidemia, unspecified; I10 Essential (primary) hypertension; M19.90 Unspecified osteoarthritis, unspecified site; W01.0XXA Fall on same level from slipping, tripping and stumbling without subsequent striking against object, initial encounter
CPT/HCPCS: 73080; 99283; 99284; A4565; A9270

== ENCOUNTER → 2022-05-20 09:03 | Outpatient (CLI) | payer MEDICARE, SELFPAY ==
--- NOTE | ~2022-05-20 | CT_ITS ---
EXAMINATION: CT elbow LT wo con DATE: 05/20/2022 09:36 INDICATION: Left elbow pain TECHNIQUE: High resolution computed tomography (CT) of the left elbow was performed without intraveno us contrast. Additional sagittal and coronal reconstructions were performed. Automated exposure contr ol and iterative reconstruction technique were employed. The dose-length product was 157.02 mGy-cm. COMPARISON: Radiographs dated 05/16/2022 FINDINGS: There is a small likely impaction fracture along the rim of the proximal articular surface of the rad ial head with few tiny intra-articular bone fragments. There appears be a small concavity along the p osterior margin of the articular surface of the capitellum but without definitive linear lucent or sc lerotic fracture line this remains equivocal for impaction fracture versus artifactual pseudodefect. Finally there however a few mildly distracted tiny avulsion fracture fragments donor site along the l ateral ulnar collateral ligament/annulus ligament insertion on the john supinatoris of the proximal ulna. Mild osteoarthritis at the elbow joint.] Mild nonuniform joint space narrowing and tiny margin al osteophytes. Minimal elbow joint effusion. IMPRESSION: 1. A few tiny avulsion fracture fragments arising from the ulnar john supinatoris insertion of the lateral ulnar collateral ligament and annular ligament, small impaction fracture along the rim of the radial head and potentially additional impaction fracture along the posterior margin of the capitell um. Constellation of findings consistent with a radiocapitellar subluxation or dislocation injury. Th e avulsion injury of the lateral ulnar collateral ligament can predispose to posterolateral rotatory instability at the elbow. Reviewed, dictated and finalized at location B. IMPRESSION: 1. A few tiny avulsion fracture fragments arising from the ulnar john supinat rory insertion of the lateral ulnar collateral ligament and annular ligament, s mall impaction fracture along the rim of the radial head and potentially additi onal impaction fracture along the posterior margin of the capitellum. Constella tion of findings consistent with a radiocapitellar subluxation or dislocation i njury. The avulsion injury of the lateral ulnar collateral ligament can predisp ose to posterolateral rotatory instability at the elbow.
== END ==
PROVIDERS: PCP Physician Assistant; Visit Provider Nurse Practitioner
DX: S52.112A Torus fracture of upper end of left radius, initial encounter for closed fracture (principal); T14.90XA Injury, unspecified, initial encounter
CPT/HCPCS: 73200

== ENCOUNTER 2022-11-12 12:02 | Emergency (ER) | payer MEDICARE, SELFPAY ==
[2022-11-12 12:30] VITALS: BP 135/76; PULSE 79; RESP 14; TEMP 36.6; O2SAT 100
--- NOTE | 2022-11-12 12:49 | ED.URI ---
HPI - URI/Sore Throat General Chief Complaint: Upper Respiratory Infection Stated Complaint: Cough,Congestion Time Seen by Provider: 11/12/22 12:30 Source: patient Mode of arrival: ambulatory Limitations: no limitations History of Present Illness HPI Narrative: Rocio is a 67-year-old female patient presenting to the clinic today with complaints of cough and congestion times almost 4 weeks. She reports that she has recently finished her azithromycin but states that she feels as though she may need a steroid to help get through bronchitis. She denies any sinus congestion. She denies any fever or chills. States that she is having a productive cough with some yellow phlegm. MD elicited complaint: cough, nasal congestion and other (Chest congestion) Related Data Home Medications Medication Instructions Recorded Confirmed Lactobacillus 40-Bifidobact 0.5 cap PO DAILY 01/25/21 11/12/22 3-S.thermophilus 100 billion cell capsule (Probiotic) allopurinol 100 mg tablet 100 mg PO HS 01/25/21 11/12/22 ascorbic acid (vitamin C) 1,000 mg 1 cap PO DAILY 01/25/21 11/12/22 capsule,extended release aspirin 81 mg tablet,delayed 81 mg PO DAILY 01/25/21 11/12/22 release cholecalciferol (vitamin D3) 100 100 mcg PO DAILY 01/25/21 11/12/22 mcg (4,000 unit) capsule cranberry 1,000 mg capsule 8,400 mg PO DAILY 01/25/21 11/12/22 lisinopril 20 1 tablet PO QAM 01/25/21 11/12/22 mg-hydrochlorothiazide 25 mg tablet magnesium 500 mg tablet 750 mg PO DAILY 01/25/21 11/12/22 multivitamin 1 tablet PO DAILY 01/25/21 11/12/22 propranolol 80 mg capsule,extended 80 mg PO QAM 01/25/21 11/12/22 release 24 hr rizatriptan 10 mg tablet (Maxalt) 10 mg PO ONCE PRN Migraine Headache 01/25/21 11/12/22 loratadine 10 mg chewable tablet 5 mg PO BID 03/24/21 11/12/22 (Claritin) omeprazole 10 mg capsule,delayed 10 mg PO DAILY PRN Indigestion 03/24/21 11/12/22 release amlodipine 5 mg tablet 5 mg PO DAILY 05/18/22 11/12/22 ascorbic acid 1,000 1 ea PO DAILY 05/18/22 11/12/22 qu-[id number]-wczknnep powder effervescent pack (Emergen-C) dulaglutide 0.75 mg/0.5 mL 3 mg subcut WEEKLY 05/18/22 11/12/22 subcutaneous pen injector (Trulicity) ezetimibe 10 mg tablet 10 mg PO DAILY 05/18/22 11/12/22 fluticasone propionate 50 2 spray intranasal DAILY 05/18/22 11/12/22 mcg/actuation nasal spray,suspension (Flonase Allergy Relief) indomethacin 50 mg capsule 100 mg PO QHS 05/18/22 11/12/22 olopatadine 0.2 % eye drops 1 drp EACH EYE DAILY 05/18/22 11/12/22 (Pataday Once Daily Relief) psyllium husk 0.4 gram capsule 0.4 g PO DAILY 05/18/22 11/12/22 (Daily Fiber) Allergies Allergy/AdvReac Type Severity Reaction Status Date / Time Antihistamines - Alkylamine Allergy Severe Hives Verified 11/12/22 12:42 iohexol Allergy Severe Hives Verified 11/12/22 12:42 [From contrast - CT, X-RAY] phentermine Allergy Severe Difficulty Verified 11/12/22 12:42 Breathing Tetanus Vaccines and Toxoid Allergy Severe Hives / Verified 11/12/22 12:42 Red Face tetanus and diphtheria Allergy Intermediate Hives Verified 11/12/22 12:42 toxoids topiramate Allergy Unknown Numbness-TO Verified 11/12/22 12:42 HEAD & ARMS/HANDS codeine AdvReac Severe NAUSEA AND Verified 11/12/22 12:42 VOMITING naproxen AdvReac Severe GI ULCER Verified 11/12/22 12:42 adhesive tape AdvReac Intermediate Itching & Verified 11/12/22 12:42 BLISTERS erythromycin base AdvReac Intermediate N/V Verified 11/12/22 12:42 metformin AdvReac Intermediate Nausea and Verified 11/12/22 12:42 Vomiting Penicillins AdvReac Intermediate Rash Verified 11/12/22 12:42 sitagliptin [From Maruvia] AdvReac Intermediate Nausea and Verified 11/12/22 12:42 Vomiting Iaahjyq-DUB-PxK Reductase AdvReac Intermediate SHOOTING Verified 11/12/22 12:42 Inhibitor PAINS DOWN BILATERAL LEGS nabumetone [From Relafen] AdvReac Mild Itching / Verified 11/12/22 12:42 RASH
== END 2022-11-12 12:54 | disposition home or self-care (01) ==
PROVIDERS: Emergency Provider Nurse Practitioner Family; PCP Physician Assistant
DX: J40 Bronchitis, not specified as acute or chronic (principal); E11.9 Type 2 diabetes mellitus without complications; I10 Essential (primary) hypertension; E78.5 Hyperlipidemia, unspecified
CPT/HCPCS: 99213; G0463

== ENCOUNTER 2023-05-19 13:03 | Emergency (ER) | payer MEDICARE, SELFPAY ==
[2023-05-19 13:20] VITALS: BP 149/68; PULSE 106; RESP 18; TEMP 36.6; O2SAT 98
--- NOTE | 2023-05-19 13:31 | ED.URI ---
HPI - URI/Sore Throat General Chief Complaint: Upper Respiratory Infection Stated Complaint: Sore Throat Time Seen by Provider: 05/19/23 13:30 Source: patient Mode of arrival: ambulatory Limitations: no limitations History of Present Illness HPI Narrative: Rocio is a 68-year-old female patient presenting to the clinic today with complaints of a sore throat, swollen lymph nodes, difficulty swallowing, and hoarse voice times 1-2 days. Denies any known fever. Reports that the grand kids were positive for strep MD elicited complaint: sore throat Related Data Home Medications Medication Instructions Recorded Confirmed Lactobacillus 40-Bifidobact 0.5 cap PO DAILY 01/25/21 05/19/23 3-S.thermophilus 100 billion cell capsule (Probiotic) allopurinol 100 mg tablet 100 mg PO HS 01/25/21 05/19/23 aspirin 81 mg tablet,delayed 81 mg PO DAILY 01/25/21 05/19/23 release cholecalciferol (vitamin D3) 100 100 mcg PO DAILY 01/25/21 05/19/23 mcg (4,000 unit) capsule cranberry 1,000 mg capsule 8,400 mg PO DAILY 01/25/21 05/19/23 lisinopril 20 1 tablet PO QAM 01/25/21 05/19/23 mg-hydrochlorothiazide 25 mg tablet magnesium 500 mg tablet 750 mg PO DAILY 01/25/21 05/19/23 multivitamin 1 tablet PO DAILY 01/25/21 05/19/23 propranolol 80 mg capsule,extended 80 mg PO QAM 01/25/21 05/19/23 release 24 hr rizatriptan 10 mg tablet (Maxalt) 10 mg PO ONCE PRN Migraine Headache 01/25/21 05/19/23 loratadine 10 mg chewable tablet 5 mg PO BID 03/24/21 05/19/23 (Claritin) amlodipine 5 mg tablet 5 mg PO DAILY 05/18/22 05/19/23 dulaglutide 0.75 mg/0.5 mL 3 mg subcut WEEKLY 05/18/22 05/19/23 subcutaneous pen injector (Trulicity) ezetimibe 10 mg tablet 10 mg PO DAILY 05/18/22 05/19/23 fluticasone propionate 50 2 spray intranasal DAILY 05/18/22 05/19/23 mcg/actuation nasal spray,suspension (Flonase Allergy Relief) indomethacin 50 mg capsule 100 mg PO QHS 05/18/22 05/19/23 olopatadine 0.2 % eye drops 1 drp EACH EYE DAILY 05/18/22 05/19/23 (Pataday Once Daily Relief) psyllium husk 0.4 gram capsule 0.4 g PO DAILY 05/18/22 05/19/23 (Daily Fiber) Allergies Allergy/AdvReac Type Severity Reaction Status Date / Time Antihistamines - Alkylamine Allergy Severe Hives Verified 05/19/23 13:34 iohexol Allergy Severe Hives Verified 05/19/23 13:34 [From contrast - CT, X-RAY] phentermine Allergy Severe Difficulty Verified 05/19/23 13:34 Breathing Tetanus Vaccines and Toxoid Allergy Severe Hives / Verified 11/12/22 12:42 Red Face tetanus and diphtheria Allergy Intermediate Hives Verified 05/19/23 13:34 toxoids topiramate Allergy Unknown Numbness-TO Verified 05/19/23 13:34 HEAD & ARMS/HANDS codeine AdvReac Severe NAUSEA AND Verified 05/19/23 13:34 VOMITING naproxen AdvReac Severe GI ULCER Verified 05/19/23 13:34 adhesive tape AdvReac Intermediate Itching & Verified 05/19/23 13:34 BLISTERS erythromycin base AdvReac Intermediate N/V Verified 05/19/23 13:34 metformin AdvReac Intermediate Nausea and Verified 11/12/22 12:42 Vomiting Penicillins AdvReac Intermediate Rash Verified 11/12/22 12:42 sitagliptin [From Januvia] AdvReac Intermediate Nausea and Verified 11/12/22 12:42 Vomiting Rkcbwky-[id number]-IjQ Reductase AdvReac Intermediate SHOOTING Verified 11/12/22 12:42 Inhibitor PAINS DOWN BILATERAL LEGS nabumetone [From Relafen] AdvReac Mild Itching / Verified 11/12/22 12:42 RASH Review of Systems Review of Systems: Pertinent positives per HPI. Patient denies any fever, chills, rash, headache, visual changes, dizziness, cough, shortness of breath, chest pain, palpitations, nausea, vomiting, diarrhea, constipation, abdominal pain, or any urinary issues. PMFSH Past Medical History Medical History Allergies Cancer Diabetes Gallbladder disorder Headache Hx of migraines Hyperlipidemia Hypertension Osteoarthritis PONV (po
== END 2023-05-19 13:40 | disposition home or self-care (01) ==
PROVIDERS: Emergency Provider Nurse Practitioner Family; PCP Physician Assistant
DX: J02.0 Streptococcal pharyngitis (principal); E11.9 Type 2 diabetes mellitus without complications; E78.5 Hyperlipidemia, unspecified; I10 Essential (primary) hypertension; M19.90 Unspecified osteoarthritis, unspecified site; Z96.653 Presence of artificial knee joint, bilateral; Z79.82 Long term (current) use of aspirin
CPT/HCPCS: 87880; 99213; G0463

== ENCOUNTER 2023-09-07 20:33 | Emergency (ER) | payer MEDICARE, SELFPAY ==
[2023-09-07 20:34] VITALS: BP 154/86; PULSE 93; RESP 18; TEMP 36.6; O2SAT 99
[2023-09-07 21:23] LABS: Glucose Point of Care 283 mg/dl (65-105)
[2023-09-07 21:25] LABS: Appearance Urine Cloudy (Clear); Bacteria Urine None Seen /hpf; Bilirubin Urine Negative (Negative); Blood Urine Negative (Negative); Color Urine Yellow (Yellow); Glucose Urine UA Trace mg/dL (Negative); Ketones Urine Negative (Negative); Leukocyte Esterase Ur Negative LEU/UL (Negative); Nitrate Urine Negative (Negative); Non Pathogenic Casts 0-2; Protein Urine Negative (Negative); RBC Urine 0-2 /hpf (0-2); Specific Grav Ur 1.008 (1.001-1.035); Squamous Epithelial Cell Urine None Seen /hpf (Few); Urobilinogen Urine 0.2 mg/dL (<2.0); WBC Urine 0-5 /hpf (0-3)
--- NOTE | 2023-09-07 21:28 | ED.RECABL ---
HPI - Recheck/Abnormal Lab/Rx General Chief Complaint: Recheck/Abnormal Lab/Rx Stated Complaint: high blood sugar Time Seen by Provider: 09/07/23 21:18 Source: patient Limitations: no limitations History of Present Illness HPI narrative: patient is a 68-year-old female presents to the emergency department for high blood sugar. Patient notes that she checked her blood sugar over the past couple days and it has been higher than 200 even upwards of 400s. Patient admits to some polyuria polydipsia. Patient denies cough, fever, difficulty breathing, urinary discomfort, rash. patient admits to being on a blood sugar medication and follows with her doctor regularly without any recent changes. Patient does admit to a somewhat recent infection which she is on multiple antibiotics and multiple steroids which may have had a component to this. Patient otherwise feels well. Related Data Home Medications Medication Instructions Recorded Confirmed Lactobacillus 40-Bifidobact 0.5 cap PO DAILY 01/25/21 08/28/23 3-S.thermophilus 100 billion cell capsule (Probiotic) allopurinol 100 mg tablet 100 mg PO HS 01/25/21 08/28/23 aspirin 81 mg tablet,delayed 81 mg PO DAILY 01/25/21 08/28/23 release cholecalciferol (vitamin D3) 100 100 mcg PO DAILY 01/25/21 08/28/23 mcg (4,000 unit) capsule cranberry 1,000 mg capsule 8,400 mg PO DAILY 01/25/21 08/28/23 lisinopril 20 1 tablet PO QAM 01/25/21 08/28/23 mg-hydrochlorothiazide 25 mg tablet magnesium 500 mg tablet 750 mg PO DAILY 01/25/21 08/28/23 multivitamin 1 tablet PO DAILY 01/25/21 08/28/23 propranolol 80 mg capsule,extended 80 mg PO QAM 01/25/21 08/28/23 release 24 hr rizatriptan 10 mg tablet (Maxalt) 10 mg PO ONCE PRN Migraine Headache 01/25/21 08/28/23 loratadine 10 mg chewable tablet 5 mg PO BID 03/24/21 08/28/23 (Claritin) amlodipine 5 mg tablet 5 mg PO DAILY 05/18/22 08/28/23 fluticasone propionate 50 2 spray intranasal DAILY 03/15/23 06/24/24 mcg/actuation nasal spray,suspension (Flonase Allergy Relief) indomethacin 50 mg capsule 100 mg PO QHS 05/18/22 08/28/23 olopatadine 0.2 % eye drops 1 drp EACH EYE DAILY 05/18/22 08/28/23 (Pataday Once Daily Relief) psyllium husk 0.4 gram capsule 0.4 g PO DAILY 05/18/22 08/28/23 (Daily Fiber) dulaglutide 3 mg/0.5 mL 3 mg subcut WEEKLY 08/28/23 08/28/23 subcutaneous pen injector (Trulicity) Allergies Allergy/AdvReac Type Severity Reaction Status Date / Time Antihistamines - Alkylamine Allergy Severe Hives Verified 08/28/23 10:49 iohexol Allergy Severe Hives Verified 08/28/23 10:49 [From contrast - CT, X-RAY] phentermine Allergy Severe Difficulty Verified 08/28/23 10:49 Breathing Tetanus Vaccines and Toxoid Allergy Severe Hives / Verified 08/28/23 10:49 Red Face ezetimibe [From Zetia] Allergy Intermediate Congested Verified 08/28/23 11:17 tetanus and diphtheria Allergy Intermediate Hives Verified 08/28/23 10:49 toxoids topiramate Allergy Unknown Numbness-TO Verified 08/28/23 10:49 HEAD & ARMS/HANDS codeine AdvReac Severe NAUSEA AND Verified 08/28/23 10:49 VOMITING naproxen AdvReac Severe GI ULCER Verified 08/28/23 10:49 adhesive tape AdvReac Intermediate Itching & Verified 08/28/23 10:49 BLISTERS erythromycin base AdvReac Intermediate N/V Verified 08/28/23 10:49 metformin AdvReac Intermediate Nausea and Verified 08/28/23 10:49 Vomiting Penicillins AdvReac Intermediate Rash Verified 08/28/23 10:49 sitagliptin [From Januvia] AdvReac Intermediate Nausea and Verified 08/28/23 10:49 Vomiting [id number]-[id number] Reductase AdvReac Intermediate SHOOTING Verified 08/28/23 10:49 Inhibitor PAINS DOWN BILATERAL LEGS nabumetone [From Relafen] AdvReac Mild Itching / Verified 08/28/23 10:49 RASH Review of Systems Review of Systems: A 10 system review of systems was completed on the patient and is negative except for what is stated in the HPI. Nursing and anci
[2023-09-07 21:30] LABS: Add Urine Microscopic? YES
[2023-09-07 21:39] VITALS: BP 153/83; PULSE 83; RESP 14; O2SAT 97
[2023-09-07 21:42] LABS: Basophils Absolute Auto 0.1 K/mm3 (0.0-0.1); Basophils Percent Auto 0.5 % (0.2-1.2); Eosinophils Absolute Auto 0.2 K/mm3 (0-0.3); Eosinophils Percent Auto 1.7 % (0-4.4); Hematocrit 40.8 % (37.0-47.0); Hemoglobin 14.7 g/dL (12.0-15.0); Immature Granulocyte Absolute 0.05 K/mm3 (0.00-0.031); Immature Granulocyte Percent A 0.4 % (0-0.5); Lymphocytes Absolute Auto 1.68 K/mm3 (0.9-3.2); Lymphocytes Percent Auto 13.9 % (18.3-44.2); Mean Corpuscular Hemoglobin 31.5 pg (26-34); Mean Corpuscular Volume 87.4 fl (80-100); Mean Platelet Volume 10.7 fl (7.4-10.4); Monocytes Absolute Auto 0.7 K/mm3 (0.1-0.6); Monocytes Percent Auto 5.7 % (2.6-8.5); Neutrophils Absolute Auto 9.4 K/mm3 (1.3-6.7); Neutrophils Percent Auto 77.8 % (45.5-73.1); Platelet Count Result 341 k/mm3 (150-375); Red Blood Count 4.67 M/mm3 (4.2-5.4); Red Cell Distribution Width 12.4 % (11.5-14.5); White Blood Count 12.1 K/mm3 (4.5-10.0)
[2023-09-07] MEDS: SODIUM CHLORIDE 0.9% IV 1,000 ML 999 ML IV CONT (21:50)
[2023-09-07 21:54] LABS: Alanine Aminotransferase 93 U/L (6-35); Albumin Level 4.4 g/dL (3.5-5.1); Alkaline Phosphatase 143 U/L (38-126); Anion Gap 9 mmol/L (4-12); Aspartate Amino Transferase 89 U/L (14-36); Bilirubin,Total 0.7 mg/dL (0.2-1.3); Blood Urea Nitrogen 30 mg/dL (7-17); Calcium 10.7 mg/dL (8.4-10.2); Carbon Dioxide 27 mmol/L (22-30); Chloride 98 mmol/L (98-107); Estimated CRCL calculation 54 ml/min; Estimated Glomerular Filt Rate 55; Glucose 298 mg/dL (65-110); Sodium 134 mmol/L (137-145)
== END 2023-09-07 22:37 | disposition home or self-care (01) ==
LOC: ANHED 21:40
PROVIDERS: Emergency Medicine; Emergency Provider Student in an Organized Health Care Education/Training Program; PCP Nurse Practitioner Adult Health
DX: E11.65 Type 2 diabetes mellitus with hyperglycemia (principal); R74.01 Elevation of levels of liver transaminase levels; I10 Essential (primary) hypertension; E78.5 Hyperlipidemia, unspecified; M19.90 Unspecified osteoarthritis, unspecified site; Z96.653 Presence of artificial knee joint, bilateral; Z90.49 Acquired absence of other specified parts of digestive tract; Z90.710 Acquired absence of both cervix and uterus; Z79.85 Long-term (current) use of injectable non-insulin antidiabetic drugs; Z79.899 Other long term (current) drug therapy; Z79.82 Long term (current) use of aspirin
CPT/HCPCS: 36415; 80053; 81001; 82948; 85025; 96360; 99283; J7030

== ENCOUNTER 2024-01-16 15:08 | Outpatient (CLI) | payer MEDICARE, SELFPAY ==
[2024-01-16 19:28] LABS: Potassium 3.6 mmol/L (3.4-5.0)
== END 2024-01-16 15:09 | disposition home or self-care (01) ==
LOC: ANHBWCLAB 15:10
PROVIDERS: PCP Nurse Practitioner Adult Health; Visit Provider Nurse Practitioner Adult Health
DX: E87.6 Hypokalemia (principal)
CPT/HCPCS: 36415; 84132

== ENCOUNTER 2024-06-13 09:43 | Outpatient (CLI) | payer MEDICARE, SELFPAY ==
[2024-06-13 10:01] LABS: Hematocrit 38.2 % (37.0-47.0); Hemoglobin 13.2 g/dL (12.0-15.0); Mean Corpuscular HGB Conc 34.6 g/dl (32-36); Mean Corpuscular Hemoglobin 30.8 pg (26-34); Mean Corpuscular Volume 89.3 fl (80-100); Mean Platelet Volume 9.6 fl (7.4-10.4); Platelet Count Result 364 k/mm3 (150-375); Red Blood Count 4.28 M/mm3 (4.2-5.4); Red Cell Distribution Width 13.2 % (11.5-14.5); White Blood Count 7.8 K/mm3 (4.5-10.0)
--- OUTSIDE RECORDS SUMMARY | 2024-06-13 10:19 | XMS_ITS | Continuity of Care Document ---
Author Organization [facility] Address [address] [place] [address] Phone Care Team Providers Care Behavioral Geneticist Name Role Phone Gui Roque Unavailable Unavailable Procedures Procedure Date Office/outpatient Visit, [facility] [employer] W/ Report Advance Directives Directive Yes / No Effective Date File Name No Information Encounters Encounter Description Practice Location Reason(s) For Visit Diagnoses Date Provider Providers Copied on Encounter Office/outpat ient Visit, [facility], [address], [place], [place], [id number], [place] tel:[phone] [facility] No Information [id number] Mya Messer. [address] [place] [address] , [address], [place], [address], [place]. tel:[phone] Referring Provider: [facility] [address], [place], [place], [facility]. tel:[phone] Family History Family Member Type Diagnosis Age At Onset No Information Payers Payer name Insurance type Covered republican ID Authoriza tion(s) No Information Social History Type Description Quantity Date Captured Comments Sex Female Smoking Status No Information Chief Complaint And Reason For Visit No Information Reason For Referral Reason For Referral No Information History Of Present Illness Encounter Date Complaint History Of Prese nt Illness No Information Functional Status Date Functional Assessmen t No Information Instructions Date Instruction Additional Infor mation No Information Assessments Type Assessment Date No Information Patient Care Teams Name Effective Dates (start - stop) Status Members No Information
--- OUTSIDE RECORDS SUMMARY | 2024-06-13 10:19 | XMS_ITS | Data Portability ---
Author Organization [place] [facility], Main Office Address [address] [place] [address] Care Team Providers Care Quality Worker Name Role Phone AMANDA HURT Primary Care Provider AMANDA HURT Referring Provider [phone] Assessment Encounter Date Assessment Date Assessment LastModified by Organization Details LastModified Time 06/07/2024 06/07/2024 The patient has a history of bilateral total knee arthroplasties. Today's x-rays do not show any evidence of failure or loosening of either implant kneecaps both tracked well. Concern would be for simmering occult infection in the right knee as she did have a dental abscess 3-4 months ago. She did take antibiotics and had dental procedure to clear the infection. I have recommended further investigation we will start with sed rate and C-reactive protein and a CBC. I would also like to have the knee aspirated under fluoroscopy to have the best chance at obtaining some fluid we will send that for cell count, aerobic and anaerobic cultures Gram stain and crystals. We will try to rule out infection look for any markers for infection. I will see her back once all the lab work has done and make further recommendations from there. Certainly if she starts to develop fevers chills night sweats constitutional symptoms erythema heat or other signs of infection in the right knee she is to call immediately. The patient voiced understanding and agreed with the above plan. [email or web address] Not available 06/07/2024 12:43:06 Plan of Treatment Reminders Order Date Submit Date Provider Last Modified By Organization Details Last Modified Time Details Appointments Any 5 2024 09:45A DAVE Maldonado Not available Not available Not available Lab ESR (erythroc yte sedimenta tion rate), blood [address] (Lab), [address] [facility] [address], [place], [address], 06/07/2024 12:44:32 C-reactiv e protein, quantitat rosa, serum or plasma [address] [place] [address] (Lab), [address] [facility] [address], [place], [address], 06/07/2024 12:44:32 CBC [address] [place] [address] (Lab), [address] [facility] [address], [place], [address], 06/07/2024 12:44:32 Referral None recorded. Procedures joint aspiratio n, fluorosco pic guided (PROC) - Please send fluid for aerobic/a narobic, C&S, gram stain, cell count, crystals [address] [place] [address] Imaging, [address] [facility] [address], [place], [address], 06/07/2024 13:15:28 Surgeries None recorded. Imaging XR, knee, 3 view 2024 [facility] [email or web address] [facility] [place], [address], [place], [address], 06/07/2024 12:46:18 Medication Orders benzonata te 200 mg capsule 2022 023 [email or web address] [id number], [address], [place], [address], 06/07/2024 12:10:27 albuterol sulfate HFA 90 mcg/actua tion aerosol inhaler 2022 023 [email or web address] [id number], [address], [place], [address], 06/07/2024 12:09:47 Zithromax Z-Jose 250 mg tablet 2022 023 [email or web address] [facility][id number], [address], [place], [address], 06/07/2024 12:10:11 Medrol (Jose) 4 mg tablets in a dose pack 2022 023 [email or web address] [facility] #[id number], [address], [place], [address], 06/07/2024 12:13:09 Patient TargetsNo targets recorded. Patient InstructionsNo instructions recorded. Reason for Referral None Reported. Results Created Date Observation Date Name Description Value Unit Range Abnormal Flag Note LastModifiedBy Organization Detail LastModifiedTime 12/04/1912/04/2021 HEMOG LOBIN A1C hemoglobin A1C 6.5 %_of_ total _HGB <5.7 high For someo ne witho ut known diabe luke, a hemog lobin A1c value of 6.5% or great er indic ates that they may have diabe luke and this shoul d be confi rmed with a follo w-up test. For someo ne with known diabe luke, a value <7% indic ates that their diabe luke is well contr olled and a value great er than or equal to 7% indic ates subop timal contr ol. A1c targe ts shoul d be indiv idual ized based on durat ion of diabe luke, age, comor bid condi tions , and other consi derat ions. Curre ntly, no conse nsus exist s adrian katz use of hemog lobin A1c for diagn osis of diabe luke for child roderick. Not Available [facility] [address] [address], [place], [address], 12/04/2021 06:00:19 12/04/19 22 12/04/2021 VITAM IN D,25- OH,TO GEOVANNY,I A vitamin D,25-oh,tota l,ia 58 NG/mL 30-100 normal Vitam in D Statu s 25-OH Vitam in D: Defic iency : <20 ng/mL Insuf ficie ncy: 20 - 29 ng/mL Optim al: > or = 30 ng/mL For 25-OH Vitam in D testi ng on patie nts on D2-florez pplem entat ion and patie nts for whom quant itati on of D2 and D3 fract ions is requi red, the Quest Assur eD(TM ) 25-OH VIT D, (D2,D 3), LC/MS /MS is recom eugeen d: order code 78101 (afshin ents >2yrs ). See Note 1 Note 1 For addit ional infor ozzy parson e refer to http: //[facility] gonzalez Wade gnost ics.c om/fa q/FAQ 199 (This link is being provi ded for infor brittani calero/ anatoliy mareso ses only. ) Not Available [address], [address], 12/04/2021 06:00:18 12/04/19 22 12/04/2021 HEPAT IC FUNCT ION PANEL protein, total 7.2 g/dL 6.1-8. 1 normal Not Available [address], [address], 12/04/2021 06:00:18 12/04/19 22 12/04/2021 HEPAT IC FUNCT ION PANEL albumin 4.2 g/dL 3.6-5. 1 normal Not Available [address], [address], 12/04/2021 06:00:18 12/04/19 22 12/04/2021 HEPAT IC FUNCT ION PANEL globulin 3.0 g/dL_ (calc ) 1.9-3. 7 normal Not Available [address], [address], 12/04/2021 06:00:18 12/04/19 22 12/04/2021 HEPAT IC FUNCT ION PANEL albumin/glob ulin ratio 1.4 (calc ) 1.0-2. 5 normal Not Available [address] [address] [place], [address], 12/04/2021 06:00:18 12/04/19 22 12/04/2021 HEPAT IC FUNCT ION PANEL bilirubin, total 0.8 mg/dL 0.2-1. 2 normal Not Available [address] [address] [place], [address], 12/04/2021 06:00:18 12/04/19 22 12/04/2021 HEPAT IC FUNCT ION PANEL bilirubin, direct 0.1 mg/dL < or = 0.2 normal Not Available [address] [address] [place], [address], 12/04/2021 06:00:18 12/04/19 22 12/04/2021 HEPAT IC FUNCT ION PANEL bilirubin, indirect 0.7 mg/dL _(mariah c) 0.2-1. 2 normal Not Available [address] [address] [place], [address], 12/04/2021 06:00:18 12/04/19 22 12/04/2021 HEPAT IC FUNCT ION PANEL alkaline phosphatase 103 U/L 37-153 normal Not Available [employer] [address] [address] [place], [address], 12/04/2021 06:00:18 12/04/19 22 12/04/2021 HEPAT IC FUNCT ION PANEL AST 33 U/L 10-35 normal Not Available [facility] [address] [address] [place], [address], 12/04/2021 06:00:18 12/04/19 22 12/04/2021 HEPAT IC FUNCT ION PANEL ALT 45 U/L 6-29 high Not Available [employer] [address] [address] [place], [address], 12/04/2021 06:00:18 12/04/19 22 12/04/2021 BASIC METAB OLIC PANEL creatinine 0.83 mg/dL 0.50-1 .05 normal Not Available [address], [address], 12/04/2021 06:00:17 12/04/19 22 12/04/2021 BASIC METAB OLIC PANEL glucose 139 mg/dL 65-99 high Fasti ng refer ence inter mohamud For someo ne witho ut known diabe luke, a gluco se value >125 mg/dL indic ates that they may have diabe luke and this shoul d be confi rmed with a follo w-up test. Not Available [address], [address], 12/04/2021 06:00:17 12/04/19 22 12/04/2021 BASIC METAB OLIC PANEL urea nitrogen (BUN) 16 mg/dL 7-25 normal Not Available [address], [address], 12/04/2021 06:00:17 12/04/19 22 12/04/2021 BASIC METAB OLIC PANEL eGFR 78 mL/mi n/1.7 3m2 > or = 60 normal The eGFR is based on the CKD-E PI 2020 equat ion. To calcu late the new eGFR from a previ ous Creat inine or Cysta tin C resul t, go to https ://talon winslow/lesia lui s/ kdoqi /gfr% 5Fcal culat or Not Available [address] [address] [place], [address], 12/04/2021 06:00:17 12/04/19 22 12/04/2021 BASIC METAB OLIC PANEL BUN/creatini ne ratio not applic able (calc ) 6-22 Not Available [facility] [address] [address] [place], [address], 12/04/2021 06:00:17 12/04/19 22 12/04/2021 BASIC METAB OLIC PANEL sodium 138 mmol/ L 135-14 6 normal Not Available [address], [address], 12/04/2021 06:00:17 12/04/1912/04/2021 BASIC METAB OLIC PANEL potassium 3.5 mmol/ L 3.5-5. 3 normal Not Available [address], [address], 12/04/2021 06:00:17 12/04/19 22 12/04/2021 BASIC METAB OLIC PANEL chloride 100 mmol/ L 98-110 normal Not Available [address], [address], 12/04/2021 06:00:17 12/04/19 22 12/04/2021 BASIC METAB OLIC PANEL carbon dioxide 29 mmol/ L 20-32 normal Not Available [address], [address], 12/04/2021 06:00:12/04/1912/04/2021 BASIC METAB OLIC PANEL calcium 9.7 mg/dL 8.6-10 .4 normal Not Available [address], [address], 12/04/2021 06:00:17 12/04/1912/04/2021 LIPID PANEL , STAND ADRYAN LDL-choleste rol 83 mg/dL _(mariah c) normal Refer ence range : <100 Sally able range <100 mg/dL for prima ry preve ntion ; <70 mg/dL for patie nts with CHD or diabe tic patie nts with > or = 2 CHD risk facto rs. LDL-C is now calcu lated using the Manisha n-Hop kins calcu latdonnell n, which is a valid ated novel metho d provi sterling crews r accur acy than the Fried christopher equat ion in the estim ation of LDL-C . Manisha rooney SS et al. MEAGAN. 2013; 310(1 9): 2061- 2068 (http ://ed ucati on.PolicyBazaar parulStemPath. com/f aq/FA Q164) Not Available [address] [address] [place], [address], 12/04/2021 06:00:17 12/04/19 22 12/04/2021 LIPID PANEL , STAND ADRYAN cholesterol, total 174 mg/dL <200 normal Not Available [address], [address], 12/04/2021 06:00:17 12/04/1912/04/2021 LIPID PANEL , STAND ADRYAN HDL cholesterol 65 mg/dL > or = 50 normal Not Available [address], [address], 12/04/2021 06:00:17 12/04/1912/04/2021 LIPID PANEL , STAND ADRYAN triglyceride s 160 mg/dL <150 high Not Available [address], [address], 12/04/2021 06:00:17 12/04/19 22 12/04/2021 LIPID PANEL , STAND ADRYAN chol/HDLC ratio 2.7 (calc ) <5.0 normal Not Available [address], [address], 12/04/2021 06:00:17 12/04/1912/04/2021 LIPID PANEL , STAND ADRYAN non HDL cholesterol 109 mg/dL _(mariah c) <130 normal For patie nts with diabe luke plus 1 major ASCVD risk facto r, treat ing to a non-H DL-C goal of <100 mg/dL (LDL- C of <70 mg/dL ) is consi ankit ratliff optio n. Not Available [address], [address], 12/04/2021 06:00:17 06/10/19 23 06/10/2022 LIPID PANEL , STAND ADRYAN cholesterol, total 167 mg/dL <200 normal Not Available [address], [address], 06/10/2022 04:00:17 06/10/19 23 06/10/2022 LIPID PANEL , STAND ADRYAN HDL cholesterol 67 mg/dL > or = 50 normal Not Available [address], [address], 06/10/2022 04:00:17 06/10/19 23 06/10/2022 LIPID PANEL , STAND ADRYAN triglyceride s 163 mg/dL <150 high Not Available [address], [address], 06/10/2022 04:00:17 06/10/1906/10/2022 LIPID PANEL , STAND ADRYAN LDL-choleste rol 74 mg/dL _(mariah c) normal Refer ence range : <100 Sally able range <100 mg/dL for prima ry preve ntion ; <70 mg/dL for patie nts with CHD or diabe tic patie nts with > or = 2 CHD risk facto rs. LDL-C is now calcu lated using the Manisha n-Hop kins calcu narda n, which is a valid ated novel nurys crews r accur acy than the Fried christopher equat ion in the estim ation of LDL-C . Manisha rooney SS et al. MEAGAN. 2013; 310(1 9): 2061- 2068 (http ://ed ucati on.Qu Kevin JustParts. com/f aq/FA Q164) Not Available [address], [address], 06/10/2022 04:00:17 06/10/19 23 06/10/2022 LIPID PANEL , STAND ADRYAN chol/HDLC ratio 2.5 (calc ) <5.0 normal Not Available [address] [place], [address], 06/10/2022 04:00:17 06/10/1906/10/2022 LIPID PANEL , STAND ADRYAN non HDL cholesterol 100 mg/dL _(mariah c) <130 normal For patie nts with diabe luke plus 1 major ASCVD risk facto r, treat ing to a non-H DL-C goal of <100 mg/dL (LDL- C of <70 mg/dL ) is consi dered a thera peuti c optio n. Not Available [facility] [address] [address] [place], [address], 06/10/2022 04:00:17 06/10/1906/10/2022 URIC ACID uric acid 6.9 mg/dL 2.5-7. 0 normal Thera peuti c targe t for gout patie nts: <6.0 mg/dL Not Available [facility] [address], [place], [address], 06/10/2022 04:00:17 06/10/1906/10/2022 COMPR EHENS ROSA METAB OLIC PANEL glucose 153 mg/dL 65-99 high Fasti ng refer ence inter mohamud For someo ne witho ut known diabe luke, a gluco se value >125 mg/dL indic ates that they may have diabe luke and this shoul d be confi rmed with a follo w-up test. Not Available [facility] [address] [address] [address] , [place], [address], 06/10/2022 04:00:18 06/10/1906/10/2022 COMPR EHENS ROSA METAB OLIC PANEL urea nitrogen (BUN) 17 mg/dL 7-25 normal Not Available [facility] [address] , [place], [address], 06/10/2022 04:00:18 06/10/1906/10/2022 COMPR EHENS ROSA METAB OLIC PANEL creatinine 0.84 mg/dL 0.50-1 .05 normal Not Available [address], [address], 06/10/2022 04:00:18 06/10/19 23 06/10/2022 COMPR EHENS ROSA METAB OLIC PANEL eGFR 76 mL/mi n/1.7 3m2 > or = 60 normal The eGFR is based on the CKD-E PI 2020 equat ion. To calcu late the new eGFR from a previ ous Creat inine or Cysta tin C resul t, go to https ://talon w.jelani nolascoy.o nayla/pr ofess ional s/ kdoqi /gfr% 5Fcal culat or Not Available [address], [address], 06/10/2022 04:00:18 06/10/19 23 06/10/2022 COMPR EHENS ROSA METAB OLIC PANEL BUN/creatini ne ratio NOT APPLIC ABLE (calc ) 6-22 Not Available [address], [address], 06/10/2022 04:00:18 06/10/19 23 06/10/2022 COMPR EHENS ROSA METAB OLIC PANEL sodium 138 mmol/ L 135-14 6 normal Not Available [address], [address], 06/10/2022 04:00:18 06/10/19 23 06/10/2022 COMPR EHENS ROSA METAB OLIC PANEL potassium 4.0 mmol/ L 3.5-5. 3 normal Not Available [address], [address], 06/10/2022 04:00:18 06/10/19 23 06/10/2022 COMPR EHENS ROSA METAB OLIC PANEL chloride 100 mmol/ L 98-110 normal Not Available [address], [address], 06/10/2022 04:00:18 06/10/19 23 06/10/2022 COMPR EHENS ROSA METAB OLIC PANEL carbon dioxide 28 mmol/ L 20-32 normal Not Available [address], [address], 06/10/2022 04:00:18 06/10/19 23 06/10/2022 COMPR EHENS ROSA METAB OLIC PANEL calcium 10.0 mg/dL 8.6-10 .4 normal Not Available [address], [address], 06/10/2022 04:00:18 06/10/19 23 06/10/2022 COMPR EHENS ROSA METAB OLIC PANEL protein, total 7.4 g/dL 6.1-8. 1 normal Not Available [address], [address], 06/10/2022 04:00:18 06/10/19 23 06/10/2022 COMPR EHENS ROSA METAB OLIC PANEL albumin 4.1 g/dL 3.6-5. 1 normal Not Available [address], [address], 06/10/2022 04:00:18 06/10/19 23 06/10/2022 COMPR EHENS ROSA METAB OLIC PANEL globulin 3.3 g/dL_ (calc ) 1.9-3. 7 normal Not Available [address], [address], 06/10/2022 04:00:18 06/10/19 23 06/10/2022 COMPR EHENS ROSA METAB OLIC PANEL albumin/glob ulin ratio 1.2 (calc ) 1.0-2. 5 normal Not Available [address], [address], 06/10/2022 04:00:18 06/10/19 23 06/10/2022 COMPR EHENS ROSA METAB OLIC PANEL bilirubin, total 0.7 mg/dL 0.2-1. 2 normal Not Available [address] [address] [place], [address], 06/10/2022 04:00:18 06/10/19 23 06/10/2022 COMPR EHENS ROSA METAB OLIC PANEL alkaline phosphatase 90 U/L 37-153 normal Not Available [facility] [address] [address] [place], [address], 06/10/2022 04:00:18 06/10/19 23 06/10/2022 COMPR EHENS ROSA METAB OLIC PANEL AST 50 U/L 10-35 high Not Available [address] [address] [place], [address], 06/10/2022 04:00:18 06/10/19 23 06/10/2022 COMPR EHENS ROSA METAB OLIC PANEL ALT 64 U/L 6-29 high Not Available [address] [address] [place], [address], 06/10/2022 04:00:18 06/10/1906/10/2022 VITAM IN D,25- OH,TO GEOVANNY,I A vitamin D,25-oh,tota l,ia 58 NG/mL 30-100 normal Vitam in D Statu s 25-OH Vitam in D: Defic iency : <20 ng/mL Insuf ficie ncy: 20 - 29 ng/mL Optim al: > or = 30 ng/mL For 25-OH Vitam in D testi ng on patie nts on D2-florez pplem entat ion and patie nts for whom quant itati on of D2 and D3 fract ions is requi red, the Quest Assur eD(TM ) 25-OH VIT D, (D2,D 3), LC/MS /MS is recom eugene d: order code 68539 (afshin ents >2yrs ). See Note 1 Note 1 For addit ional infor ozzy parson e refer to http: //anuel rooney.Aldo Alvaradoia gnost ics.c om/fa q/FAQ 199 (This link is being provi ded for infor brittani nal/ educa magnolia l purpo ses only. ) Not Available [facility] [address] [place], [address], 06/10/2022 04:00:19 06/10/19 23 06/10/2022 HEMOG LOBIN A1C hemoglobin A1C 6.8 %_of_ total _HGB <5.7 high For someo ne witho ut known diabe luke, a hemog lobin A1c value of 6.5% or great er indic ates that they may have diabe luke and this shoul d be confi rmed with a follo w-up test. For someo ne with known diabe luke, a value <7% indic ates that their diabe luke is well contr olled and a value great er than or equal to 7% indic ates subop timal contr ol. A1c targe ts shoul d be indiv idual ized based on durat ion of diabe luke, age, comor bid condi tions , and other consi derat ions. Curre ntly, no conse nsus exist s regar ding use of hemog lobin A1c for diagn osis of diabe luke for child roderick. Not Available [facility] [address] [place], [address], 06/10/2022 04:00:19 07/01/1906/30/2022 rapid strep group A, throa t STREP A positi ve Not Available [facility] [address], [place], [address], 06/30/2022 11:33:47 12/24/19 XR, knee No observ ation record ed. [id number] [facility] [place] [address], [place], [address], 05/04/2022 06:08:49 01/13/20 22 01/12/2022 imagi ng/di agnos tic resul t No observ ation record ed. [id number] [facility] [address] [facility], [place], [address], 05/04/2022 06:08:49 01/13/20 22 01/12/2022 imagi ng/di agnos tic resul t No observ ation record ed. [id number] [facility] [address] [facility], [place], [address], 05/04/2022 06:08:49 05/18/19 23 05/16/2022 XR, elbow No observ ation record ed. [email or web address] [id number] [facility] [address], [place], [address], 05/17/2022 12:11:31 05/21/19 23 05/20/2022 CT, elbow , w/o contr ast No observ ation record ed. [email or web address] [facility] [address] [facility] [address], [place], [address], 05/20/2022 11:23:15 06/08/19 25 XR, knee, 3 view No observ ation record ed. [email or web address] [facility] [place] [address] [facility] [address], [place], [address], 06/07/2024 12:44:03 Result Notes None recorded. Problems Name Problem SNOMED Code Status Onset Date Resolution Date Notes Provider Name and Address Organization Details Recorded Time Gouty arthropat hy 928641702 Active 2016 Not Available [facility] 4 15:46:10 Osteoarth ritis of knee 628179372 Active Not Available [facility] 4 15:46:10 Endometri al carcinoma 391013953 Active 2020 Not Available [facility] 4 15:46:10 Edema 495824182 Completed Not Available [facility] 3 06:01:00 Hypertrig lyceridem ia 770338362 Active 2018 Not Available [facility] 4 15:46:10 Knee pain Active Not Available [facility] 4 15:46:10 Influenza vaccinati on declined 787855914 Active 2018 Not Available [facility] 4 15:46:10 Vitamin D deficienc y 31421936 Active 2016 Not Available [facility] 4 15:46:10 Elevated blood-pre ssure reading without diagnosis of hypertens ion 683806288 Completed 201802/06/2020 Not Available [facility] 3 06:01:00 Migraine 97080882 Active Not Available [facility] 4 15:46:10 Adhesive capsuliti s of shoulder 056412014 Active Not Available [facility] 4 15:46:10 Newly diagnosed diabetes 351366336 Completed 201810/01/2019 Not Available [facility] 3 06:01:00 Disorder of kidney and/or ureter 099530842 Active Not Available [facility] 4 15:46:10 Hyperlipi demia 35117232 Active 2021 Not Available [facility] 4 15:46:10 Essential hypertens ion 92632464 Active 2019 Not Available [facility] 4 15:46:10 Allergic rhinitis 86238899 Active 2016 Not Available [facility] 4 15:46:10 Diabetes mellitus 22022565 Active 2019 Not Available [facility] 4 15:46:10 Pain in throat 787449851 Active 2022 Not Available [facility] 4 15:46:10 Streptoco ccal sore throat 07027444 Active 2022 Not Available [facility] 4 15:46:10 Upper respirato ry infection 98225213 Active 2022 Not Available [facility] 4 15:46:10 Acute urinary tract infection 491672381 Active 2022 Not Available [facility] 4 15:46:10 Acute sinusitis 46393660 Active 2022 Not Available [facility] 4 15:46:10 Cough 54314479 Active 2022 Not Available [facility] 4 15:46:10 Candidias is of vagina 05369765 Active 2023 CRISSY Cardenas [address], [place], [address] , [place] [facility] 4 14:01:13 Traveler' s diarrhea 53996433 Active 2023 Angie Galloway MD [address], [facility] [address], [place], [address] , [place] [facility] 4 18:03:26 Pain of bilateral knee joints 35923036466 4104 Active 2024 FERMÍN Molina, [place] [facility] 5 12:15:34 Mechanica l complicat ion of implant 781442080 Active 2024 Mirella monae, [place] [facility] 5 12:29:23 Problem Notes None recorded. Procedures Surgical History Date Name Laterality Status Provider Name and Address Organization Details Recorded Time Colonoscopy completed Not Available [facility] 05/04/2022 05:54:46 Cholecystectomy completed Grace jaramillo [employer] [employer] [place] [facility] 06/07/2024 12:18:57 Knee Replacement completed Not Available [facility] 05/04/2022 05:54:46 Appendectomy completed Grace Ventura CNA [place] [facility] 06/07/2024 12:18:32 Hysterectomy completed Grace Ventura [employer] [employer]INTER [place] [facility] 06/07/2024 12:19:07 D & c after delivery completed Not Available [facility] 05/04/2022 05:54:46 Imaging Results Imaging Date Name Status LastModified by Organiz ation Details LastModified Time 01/12/2022 imaging/diagn ostic result completed [id number] 026 [facility] [address] [place] [address], [place], [address], 05/04/2022 06:08:49 01/12/2022 imaging/diagn ostic result completed [id number] 026 [facility] [address] [facility], [place], [address], 05/04/2022 06:08:49 12/23/2021 XR, knee completed [id number] 026 [facility] [place] [address], [place], [address], 05/04/2022 06:08:49 05/16/2022 XR, elbow completed [address] [facility] [address] [facility] [address], [place], [address], 05/17/2022 12:11:31 05/20/2022 CT, elbow, w/o contrast completed [address] [facility] [address] [facility] [address], [place], [address], 05/20/2022 11:23:15 06/07/2024 XR, knee, 3 view completed [email or web address] [facility] [place] [address], [place], [address], 06/07/2024 12:44:03 Procedure Notes None recorded. Medical Equipment None Reported. Allergies Allergen ID Allergen Name Allergen Category Reaction Reaction Severity Criticality Documentation Date Start Date Code Code System Note Provider Name and Address Organization Details Recorded Time 69289 Topamax medicatio n other Not available Not available 05/04/202200893 3 RxNorm Not Available [facility] 3 06:08:34 50193 tetanus and diphtheri a toxoids Not available hives Not available Not available 05/04/2022 37559 UNK Not Available [facility] 3 06:08:35 97618 Product containin g 3-hydroxy -3-methyl glutaryl- coenzyme A reductase inhibitor (product) medicatio n arthralgi a (joint pain) other Not available Not available Not available 05/04/2022 08272 009 SNOMED Not Available [facility] 3 06:08:35 50706 Relafen medicatio n itching Not available Not available 05/04/2022 65479 4 RxNorm Not Available [facility] 3 06:08:35 85379 phentermi ne medicatio n Not available Not available Not available 05/04/2022 8152 RxNorm Not Available [facility] 3 06:08:35 85408 Product containin g penicilli n (product) medicatio n Not available Not available Not available 05/04/2022 73477 8001 SNOMED Not Available [facility] 3 06:08:35 10956 naproxen medicatio n nausea Not available Not available 05/04/2022 7258 RxNorm Not Available [facility] 3 06:08:35 92722 metformin medicatio n Not available Not available Not available 05/04/2022 6809 RxNorm Not Available [facility] 3 06:08:35 50986 Januvia medicatio n Not available Not available Not available 05/04/2022 75396 6 RxNorm Not Available [facility] 3 06:08:35 18742 iodine medicatio n Not available Not available Not available 05/04/2022 5933 RxNorm Not Available [facility] 3 06:08:35 53303 Iodinated contrast media (substanc e) medicatio n Not available Not available Not available 05/04/2022 71748 2004 SNOMED Not Available [facility] 3 06:08:35 14474 erythromy jaci medicatio n nausea Not available Not available 05/04/2022 4053 RxNorm Can take azith romyc in [facility], [facility] [address] [facility], [address], [place], [address] [place] [address] [employer] 3 10:03:58 72083 codeine medicatio n Not available Not available Not available 05/04/2022 2670 RxNorm Not Available [facility] 3 06:08:36 99058 Propylami ne derivativ e with histamine receptor antagonis t mechanism of action (substanc e) medicatio n other Not available Not available 05/04/2022 13294 8008 SNOMED Not Available [facility] 3 06:08:36 83265 adhesive tape environme nt,medica tion Not available Not available Not available 05/04/2022 54441 UNK Not Available [facility] 3 06:08:36 35250 tetracycl ine medicatio n nausea Not available Not available 03/08/2023 48469 RxNorm Kwamedonato Gomezd, [employer] [address] [facility], [facility] [address], [place], [address] , [facility] [employer] 4 10:44:30 Medications Name Sig Start Date Stop Date Status Note LastModified by Organization Details LastModified Time aspirin 81 mg capsule Take 1 capsule every day by oral route as directed . 05/02 completed OTC Not Available Not Available Not Available fluconazo le 100 mg tablet TAKE 1 TABLET BY MOUTH EVERY DAY 06/07 completed Not Available Not Available Not Available metformin 500 mg tablet Take 1 tablet twice a day by oral route for 90 days. 11/07 completed Not Available Not Available Not Available doxycycli ne hyclate 100 mg capsule TAKE 1 CAPSULE BY MOUTH TWICE A DAY X10 DAYS 06/04 completed Not Available Not Available Not Available clindamyc in HCl 300 mg capsule 05/06 completed Not Available Not Available Not Available atorvasta tin 10 mg tablet Take 1 tablet every day by oral route for 90 days. 02/19 completed Not Available Not Available Not Available lisinopri l 20 mg-hydroc hlorothia zide 12.5 mg tablet TAKE 1 TABLET BY MOUTH EVERY DAY 05/20 completed Not Available Not Available Not Available azithromy jaci 250 mg tablet TAKE 2 TABLETS BY MOUTH TODAY, THEN TAKE 1 TABLET DAILY FOR 4 DAYS DIRECTED 06/07 completed Not Available Not Available Not Available fluconazo le 150 mg tablet TAKE 1 TABLET BY MOUTH ONCE A SINGLE DOSE 06/07 completed Not Available Not Available Not Available benzonata te 200 mg capsule TAKE 1 CAPSULE BY MOUTH 3 TIMES A DAY NEEDED FOR COUGH 06/07 completed Not Available Not Available Not Available valacyclo vir 1 gram tablet TAKE 1 TABLET BY MOUTH THREE TIMES A DAY FOR 7 DAYS 06/07 completed Not Available Not Available Not Available phenazopy ridine 200 mg tablet TAKE 1 TABLET BY MOUTH 3 TIMES A DAY NEEDED 10/25 completed Not Available Not Available Not Available lisinopri l 20 mg tablet TAKE 1 TABLET (20 MG) BY MOUTH DAILY active Not Available Not Available No t Available prednison e 20 mg tablet TAKE 2 EVERY DAY WITH FOOD FOR 5 DAYS 06/04 completed Not Available Not Available Not Available rizatript an 10 mg tablet TAKE 1 TABLET BY MOUTH NEEDED 06/07 completed Not Available Not Available Not Available pimecroli mus 1 % topical cream APPLY 1 APPLICAT ION ONTO THE FACE TWICE DAILY FOR FLARES 06/07 completed Not Available Not Available Not Available clindamyc in HCl 150 mg capsule TAKE 4 CAPSULES BY MOUTH 1HOUR PRIOR TO VISIT 06/07 completed Not Available Not Available Not Available phentermi ne 37.5 mg tablet Take 1 tablet every day by oral route for 30 days. active Not Available Not Available No t Available ciproflox acin 250 mg tablet Take 1 tablet twice a day by oral route for 5 days. active Not Available Not Available No t Available amlodipin e 5 mg tablet TAKE 1 TABLET BY MOUTH ONCE DAILY active Not Available Not Available No t Available allopurin ol 100 mg tablet TAKE 1 TABLET BY MOUTH EVERY DAY 06/07 completed Not Available Not Available Not Available ciproflox acin 500 mg tablet TAKE 1 TABLET BY MOUTH EVERY 12 HOURS FOR 7 DAYS 06/07 completed Not Available Not Available Not Available aspirin 81 mg tablet,de layed release Take 1 tablet every day by oral route. 08/31 completed Not Available Not Available Not Available triamtere ne 37.5 mg-hydroc hlorothia zide 25 mg capsule TAKE ONE CAPSULE BY MOUTH EVERY MORNING active Not Available Not Available No t Available TobraDex 0.3 %-0.1 % eye ointment APPLY 1 A SMALL AMOUNT ON EYELID EVERY SIX HOURS DIRECTED APPLY TO BOTH EYELIDS active Not Available Not Available No t Available clobetaso l 0.05 % topical gel active Not Available Not Available Not Available OneTouch Ultra Test strips USE TO TEST 3 TIMES DAILY active Not Available Not Available No t Available cephalexi n 500 mg capsule TAKE 1 CAPSULE BY MOUTH TWICE A DAY FOR 7 DAYS 06/07 completed Not Available Not Available Not Available clotrimaz ole-betam ethasone 1 %-0.05 % topical cream 12/21 completed Not Available Not Available Not Available lisinopri l 10 mg tablet TAKE 1 TABLET BY MOUTH ONCE DAILY WITH A 20 MG TABLET TO EQUAL 30 MG DAILY active Not Available Not Available No t Available propranol ol ER 80 mg capsule,2 4 hr,extend ed release TAKE 1 CAPSULE BY MOUTH EVERY DAY active Not Available Not Available No t Available clobetaso l 0.05 % topical foam 05/02 completed Not Available Not Available Not Available indometha jaci 50 mg capsule Take 1 capsule 3 times a day by oral route for 10 days. active prn Not Available Not Available No t Available lisinopri l 20 mg-hydroc hlorothia zide 25 mg tablet TAKE 1 TABLET BY MOUTH EVERY DAY 06/07 completed Not Available Not Available Not Available allopurin ol 300 mg tablet Take 1 tablet every day by oral route as directed for 90 days. 09/18 completed amanda stopped last week- 05/26 Not Available Not Available Not Available hydrochlo rothiazid e 25 mg tablet Take 1 tablet every day by oral route for 30 days. active Not Available Not Available No t Available mupirocin 2 % topical ointment 05/02 completed Not Available Not Available Not Available ergocalci ferol (vitamin D2) 1,250 mcg (50,000 unit) capsule TAKE 1 CAPSULE BY MOUTH EVERY WEEK AFTER MEALS 09/18 completed Not Available Not Available Not Available nystatin 100,000 unit/gram topical powder 12/21 completed Not Available Not Available Not Available lisinopri l 10 mg-hydroc hlorothia zide 12.5 mg tablet TAKE 1 TABLET BY MOUTH EVERY DAY 12/08 completed Not Available Not Available Not Available ibuprofen 600 mg tablet 05/02 completed PRN Not Available Not Available Not Available estradiol 0.01% (0.1 mg/gram) vaginal cream APPLY INTRAVAG INALLY 3 TIMES A WEEK active Not Available Not Available No t Available methylpre dnisolone 4 mg tablets in a dose pack TAKE 6 TABLETS ON DAY 1 DIRECTED ON PACKAGE AND DECREASE BY 1 TAB EACH DAY FOR A TOTAL OF 6 DAYS 06/07 completed Not Available Not Available Not Available albuterol sulfate HFA 90 mcg/actua tion aerosol inhaler INHALE 2 PUFFS BY MOUTH EVERY 4 HOURS 06/07 completed Not Available Not Available Not Available ketoconaz ole 2 % topical cream 05/02 completed Not Available Not Available Not Available clobetaso l 0.05 % scalp solution PLEASE SEE ATTACHED FOR DETAILED DIRECTIO NS 06/07 completed Not Available Not Available Not Available ondansetr on 4 mg disintegr ating tablet DISSOLVE 1 TABLET (4 MG) ORALLY EVERY 6 HOURS NEEDED FOR NAUSEA AND VOMITING 06/07 completed Not Available Not Available Not Available fluticaso ne propionat e 50 mcg/actua tion nasal spray,ant pension USE 2 SPRAYS IN BOTH NOSTRILS ONCE DAILY 06/07 completed Not Available Not Available Not Available doxycycli ne hyclate 100 mg tablet Take 1 tablet twice a day by oral route for 7 days. 06/04 completed Not Available Not Available Not Available azithromy jaci 500 mg tablet PLEASE TAKE 1 TAB 1 HOUR PRIOR TO ALL DENTAL VISITS A PREMEDIC ATION 06/07 completed Not Available Not Available Not Available ezetimibe 10 mg tablet TAKE 1 TABLET BY MOUTH EVERYDAY AT BEDTIME 05/29 completed Not Available Not Available Not Available Vitamin D3 25 mcg (1,000 unit) tablet Take 1 tablet every day by oral route. 10/25 completed Not Available Not Available Not Available Allergy Relief D12 5 mg-120 mg tablet,ex tended release TAKE 1 TABLET BY MOUTH EVERY 12 HOURS NEEDED 06/07 completed Not Available Not Available Not Available nitrofura ntoin monohydra te/macroc rystals 100 mg capsule TAKE 1 CAPSULE BY MOUTH EVERY 12 HOURS FOR 5 DAYS 05/20 completed Not Available Not Available Not Available BD Ultra-Fin e Mini Pen Needle 31 gauge x 05/19 USE DIRECTED WITH LANTUS TWICE DAILY active Not Available Not Available No t Available fenofibra te 160 mg tablet TAKE 1 TABLET BY MOUTH DAILY active Not Available Not Available No t Available magnesium 750 mg once a day 05/02 completed Not Available Not Available Not Available Fish Oil 1200 mg po twice daily 05/02 completed OTC Not Available Not Available Not Available Claritin 5 mg po twice a day 05/02 completed OTC Not Available Not Available Not Available fiber 2 capsules po once daily 05/02 completed OTC Not Available Not Available Not Available multivita min po once daily 05/02 completed OTC Not Available Not Available Not Available BD Ultra-Fin e Short Pen Needle 31 gauge x /16 DIRECTED TO USE WITH LANTUS NIGHTLY active Not Available Not Available No t Available Januvia 100 mg tablet Take 1 tablet every day by oral route for 30 days. active Not Available Not Available No t Available olopatadi ne 0.2 % eye drops INSTILL 1 DROP IN AFFECTED EYES ONCE A DAY active Not Available Not Available No t Available Lantus Solostar U-100 Insulin 100 unit/mL (3 mL) subcutane ous pen INJECT 20 UNITS UNDER THE SKIN TWICE DAILY 06/07 completed Not Available Not Available Not Available Vitamin D3 50 mcg (2,000 unit) tablet Take 1 tablet every day by oral route as directed . 05/02 completed OTC Not Available Not Available Not Available Vascepa 1 gram capsule Take 2 capsules twice a day by oral route for 90 days. 12/21 completed Not Available Not Available Not Available Jardiance 25 mg tablet TAKE 1 TABLET BY MOUTH EVERY DAY 06/07 completed Not Available Not Available Not Available Trulicity 1.5 mg/0.5 mL subcutane ous pen injector INJECT THE CONTENTS OF ONE PEN SUBCUTAN EOUSLY WEEKLY DIRECTED 06/07 completed Not Available Not Available Not Available Trulicity 0.75 mg/0.5 mL subcutane ous pen injector Inject 0.75 mg every week by subcutan eous route. 04/01 completed Not Available Not Available Not Available Bydureon BCise 2 mg/0.85 mL subcutane ous auto-inje ctor Inject 2 mg every week by subcutan eous route. 12/15 completed Not Available Not Available Not Available Ozempic 0.25 mg or 0.5 mg (2 mg/1.5 mL) subcutane ous pen injector Inject 0.25mg weekly x 4 weeks, then increase to 0.5mg weekly 12/21 completed Not Available Not Available Not Available OneTouch Ultra2 Meter active Not Available Not Available Not Available OneTouch Delica Plus Lancet 30 gauge USE TO TEST 3 TIMES DAILY DIRECTED active Not Available Not Available No t Available Trulicity 3 mg/0.5 mL subcutane ous pen injector INJECT THE CONTENTS OF 1 PEN UNDER THE SKIN ONCE WEEKLY 06/07 completed Not Available Not Available Not Available Trulicity 4.5 mg/0.5 mL subcutane ous pen injector INJECT 4.5 MG EVERY WEEK BY SUBCUTAN EOUS ROUTE. 06/07 completed Not Available Not Available Not Available BinaxNOW COVID-19 Ag Self Test kit Use as Directed on the Package 06/07 completed Not Available Not Available Not Available aspirin 81 mg capsule Take by oral route. 2020 active Not Available Not Available Not Avai lable Mounjaro 7.5 mg/0.5 mL subcutane ous pen injector INJECT 1 SYRINGE SUBCUTAN EOUSLY ONCE A WEEK 06/07 completed Not Available Not Available Not Available Mounjaro 5 mg/0.5 mL subcutane ous pen injector INJECT 5MG (0.5ML) UNDER THE SKIN WEEKLY 06/07 completed Not Available Not Available Not Available Mounjaro 15 mg/0.5 mL subcutane ous pen injector INJECT 1 SYRINGE SUBCUTAN EOUSLY ONCE A WEEK active Not Available Not Available No t Available Mounjaro 10 mg/0.5 mL subcutane ous pen injector INJECT 10MG UNDER THE SKIN ONCE WEEKLY 06/07 completed Not Available Not Available Not Available Mounjaro 12.5 mg/0.5 mL subcutane ous pen injector INJECT THE CONTENTS OF 1 PEN UNDER THE SKIN ONCE WEEKLY 06/07 completed Not Available Not Available Not Available Mounjaro 2.5 mg/0.5 mL subcutane ous pen injector INJECT THE CONTENTS OF 1 PEN UNDER THE SKIN ONCE WEEKLY X4 WEEKS 06/07 completed Not Available Not Available Not Available Vitals Date Recorded Body mass index (BMI) Body height Oxygen saturation Oxygen saturation in Arterial blood by Pulse oximetry Heart rate Body temperature Body weight Systolic blood pressure Diastolic blood pressure Provider Name and Address Organization Details Last Updated DateTime 2 34.9 kg/m2 165.1 cm 98 % 98 % 84 /min 98.1 [degF] 36864.4 g 136 mm[Hg] 80 mm[Hg] Not Available [facility] 3 05:56:47 Date Recorded Body height Provider Name an d Address Organization Details Last Updated DateTime 12/23/2021 165.1 cm Not Available [facility] 3 05:56:48 Date Recorded Body height Provider Name an d Address Organization Details Last Updated DateTime 06/30/2022 165.1 cm Lelia Gutierres [facility] 06/30/2022 11:57:47 Date Recorded Body height Body mass index (BMI) Body weight Body temperature Heart rate Oxygen saturation Oxygen saturation in Arterial blood by Pulse oximetry Systolic blood pressure Diastolic blood pressure Provider Name and Address Organization Details Last Updated DateTime 165.1 cm 35.4 kg/m2 52902.1 7 g 97 [degF] 85 /min 95 % 95 % 118 mm[Hg] 72 mm[Hg] Heather Baez [facility] [employer] [facility] 3 11:52:40 Date Recorded Body height Body mass index (BMI) Body weight Provider Name and Address Organization Details Last Updated DateTime 06/07/2024 165.1 cm 35.4 kg/m2 00134.17 g Grace Ventura [facility] 06/07/2024 12:08:14 Social History Question Answer Notes LastModified by Organizat ion Details LastModified Time Tobacco Smoking Status Never Smoker Not Available [facility] 05/04/2022 05:53:57 Do You Have An Advance Directive? No [id number] Information not available 05/04/2022 What Is Your Level Of Alcohol Consumption? Occasional [id number] Information not available 05/04/2022 What Is Your Level Of Caffeine Consumption? Occasional [id number] Information not available 05/04/2022 In The 14 Days Before Symptom Onset, Have You Had Close Contact With A Laboratory-confirm ed COVID-19 While That Case Was Ill? No [id number] Information not available 05/04/2022 In The 14 Days Before Symptom Onset, Have You Had Close Contact With A Person Who Is Under Investigation For COVID-19 While That Person Was Ill? No [id number] Information not available 05/04/2022 What Type Of Diet Are You Following? REGULAR [id number] Information not available 05/04/2022 Do You Use Any Illicit Or Recreational Drugs? No [id number] Information not available 05/04/2022 Have You Recently Traveled Abroad? No [id number] Information not available 05/04/2022 Sex: Unknown Functional Status None recorded. Mental Status None recorded. Family History Relationship Description Onset Age of this Age Resolved Age Notes LastModified by Organization Details LastModified Time Father Hypertensive disorder [id number] Not available 05/04/2022 05:54:47 Father Heart disease [id number] Not available 05/04/2022 05:54:47 Father Arthritis [email or web address] Not availa ble 06/07/2024 11:51:32 Father Family history of stroke [email or web address] Not available 06/07 11:51:32 Father Family history of malignant neoplasm [id number] Not available 06/07 11:51:32 Mother Hypertensive disorder [id number] Not available 05/04/2022 05:54:47 Mother Heart disease [id number] Not available 05/04/2022 05:54:47 Mother Kidney disease [id number] Not available 05/04/2022 05:54:48 Mother Arthritis [email or web address] Not availa ble 06/07/2024 11:51:32 Mother Osteoporosis [id number] Not yamila ilable 06/07/2024 11:51:32 Mother Blood coagulation disorder [id number] Not available 06/07 11:51:32 Sister Diabetes mellitus [id number] Not available 05/04/2022 05:54:48 Sister Kidney disease [id number].[id number] Not available 05/04/2022 05:54:48 Sister Complication of anesthesia [email or web address] Not available 06/2024 11:51:32 Sister Family history of malignant neoplasm [email or web address] Not available 06/07 11:51:32 Maternal Grandfather Heart disease [email or web address] Not available 2024 12:16:36 Maternal Grandmother Heart disease [email or web address] Not available 2024 12:16:40 Maternal Grandmother Family history of stroke [email or web address] Not available 2024 12:17:46 Paternal Grandfather Heart disease [email or web address] Not available 2024 12:16:50 Paternal Grandmother Heart disease [email or web address] Not available 2024 12:17:04 Medical History Condition Response ARTHRITIS Y DIABETES, TYPE Y ALLERGIES/HAYFEVER Y HEARTBURN / REFLUX Y GOUT Y HAVE YOU BEEN HOSPITALIZED OR SEEN IN [facility] ER IN THE PAST YEAR ? Y HEADACHES/MIGRAINES Y HYPERTENSION Y CANCER: SPECIFY Y Gynecological History Statement/Question Response Menses Monthly N Current Control Method Menopause Breast Problems no Discharge no Obstetrics History GPAL:G 0 P 0 0 0 0 Immunizations Vaccine Type Date Status Note Provider Georgi e and Address Organization Details Recorded Time COVID-19, mRNA, LNP-S, PF, 30 mcg/0.3 mL dose 01/06/2021 completed Not Available [facility] 4 15:46:11 COVID-19, mRNA, LNP-S, PF, 100 mcg/0.5mL dose or 50 mcg/0.25mL dose 05/19/2020 completed Not Available [facility] 4 15:46:11 COVID-19, mRNA, LNP-S, PF, 100 mcg/0.5mL dose or 50 mcg/0.25mL dose 04/28/2020 completed Not Available [facility] 4 15:46:11 Past Encounters Encounter ID Performer Location Encounter Start Date Encounter Closed Date Diagnosis/Indication Diagnosis SNOMED-CT Code Diagnosis ICD10 Code Diagnosis Note [id number] S[facility] [place] [address] 12/21/2020 00:00:00 12/22/2020 13:29:23 [id number] S_[facility] [place] [address] 05/20/2021 00:00:00 05/20/2021 11:52:06 [id number] S_[facility] [place] [address] 10/05/2021 00:00:00 10/05/2021 16:24:09 [id number] [facility] [place] [address] [facility] [address] [place] [address] 12/15/2021 00:00:00 12/15/2021 10:48:00 [id number] [facility] [address] [place] [address] 12/23/2021 00:00:00 12/23/2021 11:03:07 [id number] [facility] [place] [address] [place] [address] 02/07/2022 00:00:00 02/07/2022 12:40:25 [id number] Angie Galloway MD [facility] [place] [address] [place] [address] 06/30/2022 11:55:13 06/30/2022 13:42:18 [id number] CARL Cardenas-Azam [facility] [place] [address] [place] [address] 11/22/2022 11:46:38 11/22/2022 13:52:42 Upper respiratory infection 55322543 J06.9 continues to have frequent cough, whitish/ye llow phlegm, struggles with cold chills,Usi ng claritin D, ibuprofen and cough gttswas given abx per our office ([facility] 11/02)-mild improvemen tprednison e per 11/12 [id number] DAVE Cooley [facility] [address] [place] [address] 06/07/2024 11:48:52 06/07/2024 12:46:18 History of bilateral total knee replacement [id number] 755549 Z96.653 Pain of bi lateral knee joints 3994329630 84365 M25.561 M25.562 Mechanical complication of implant [id number] T85.698A T84.039A Health Concerns Section Related Observation LastModified by Organization Detai ls LastModified Time None Recorded Concern Status LastModified by Organization Details LastModified Time None Recorded Advance Directives Directive N: Payers Encounter Date Sequence Insurance Name Policy Number Policy Hayes Covered Member ID Hayes Member ID Guarantor Name 06/30/2022 1 [place] Dena Rojas [id number] Dena Rojas 06/30/2022 2 [employer] OPTIONS (MEDICARE SUPPLEMENT) Dena Rojas [id number] Dena Rojas 11/22/2022 1 [place] Dena Rojas [id number] Dena Rojas 11/22/2022 2 [employer] OPTIONS (MEDICARE SUPPLEMENT) Dena Rojas [id number] Dena Rojas 06/07/2024 1 [place] Dena Rojas [id number] Dena Rojas 06/07/2024 2 [employer] OPTIONS (MEDICARE SUPPLEMENT) Dena Rojas [id number] Dena Celena Rojas Notes Date Note Type Note Provider Name and Address Organization Details Recorded Time 11/22/2022 text/html Pt is here to f/ u on URI, mild improvement Kwame Butcher, [employer] [address], [address], [facility] [employer] 11/22/2022 17:08:31 06/07/2024 text/html The patient is a 69-year-old female who presents with one-week history of right knee discomfort and swelling. She states that last week she woke up 1 morning and noticed that her right knee with swollen moderately. She is having some stiffness and aching in the knee she denies any trauma or injury that she is aware of. She was unsure why it was swelling. She tried some ice and gave it time it has come down a bit. But still a little uncomfortable at times about a 5 on a scale of 1-10 other times not too bad. It does appear to be a bit puffy she denies any erythema heat or signs of infection. She has some discomfort with the extremes of motion but has full range of motion good strength and stability. She states that back in February she did have a tooth abscess on the left upper side. This was treated with oral antibiotics and decompression she had a root canal. The infection cleared. She denies any recent infections beyond that no other illnesses, no fevers chills night sweats no constitutional symptoms otherwise feels well. She has bilateral total knee arthroplasties right knee was done in 2012 left knee was done in 2009. Concern would be for seating of the knee with infection from her tooth abscess in February which could just now be presenting with right knee swelling. She comes in today for initial evaluation treatment. New past medical history sheet was reviewed and signed on the intake sheet of today's date drug allergies current medications family social history previous surgical history 10 point review of systems was reviewed and discussed in detail today with the patient. DAVE Cooley [address] [facility], [facility] [address], [place], [address], [facility] [employer] 06/07/2024 12:44:29 OBGyn Episode No OBEpisode recorded.
--- OUTSIDE RECORDS SUMMARY | 2024-06-13 10:19 | XMS_ITS | Referral Summary ---
Author Organization [facility] Address [address] [place] [address] Care Team Providers Care Accessibility Lift Technician Name Role Phone Chanelle Ramsey NP Primary Care Provider [phone] Allergies Active Allergy Reactions Criticality Noted Date Comments Adhesive Blisters,Itching High 01/05/2021 Adhesive Tape-Silicones Other (See comments) Low BURNING Antihistamines - Alkylamine Hives,Other (See comments) Medium 01/05/2021 Codeine Nausea & Vomiting Low 01/05/2021 Erythromycin Stomach upset,Nausea only Low 01/05/2021 Iodinated Contrast Media Hives Medium 07/06/2021 Metformin Stomach upset Low 01/05/2021 Nabumetone Itching,Rash Medium 01/05/2021 Naproxen Nausea only,Other (S ee comments) Low 01/05/2021 Penicillins Itching,Rash Medium 01/05/2021 Phentermine Other (See comments),Shortness of breath High 01/05/2021 Sitagliptin Diarrhea,Stomach upset Low 01/05/2021 Frtoeba-Foy-Zho Reductase Inhibitors Joint pain,Other (See comments) Low 01/05/2021 Tetanus And Diphtheria Toxoids Hives Medium 01/05/2021 Tetracycline Nausea only Low 01/17/2024 Topiramate Other (See comments) Low 01/05/2021 Medications allopurinoL (ZYLOPRIM) 100 mg tablet Active propranolol LA (INDERAL LA) 80 mg 24 hr capsule Active aspirin 81 mg capsule aspirin 81 mg capsule Take by oral route. Active fluticasone propionate (FLONASE) 50 mcg/actuation nasal spray fluticasone propionate 50 mcg/actuation nasal spray,suspension USE 2 SPRAYS IN EACH NOSTRIL DAILY Active loratadine-pseu doephedrine (Claritin-D 12 Hour) 5-120 mg tablet extended release 12 hr Active amLODIPine (NORVASC) 5 mg tablet Take 1 tablet (5 mg total) by mouth daily 2 Active ezetimibe (ZETIA) 10 mg tablet Take 1 tablet (10 mg total) by mouth nightly 2 Active rizatriptan (MAXALT) 10 mg tablet TAKE 1 TABLET BY MOUTH AT THE ONSET OF MIGRAINE. MAY REPEAT IN 2 HOURS IF NEEDED *MAX 2 IN 24 HOURS* 2 Active lisinopril-hydr oCHLOROthiazide (ZESTORETIC) 20-25 mg per tablet Take 1 tablet by mouth daily 2 Active lancets (TravelCLICKTouch Delica Plus Lancet) 30 gauge misc USE DIRECTED CHECK BLOOD SUGAR ONCE A DAY Active blood-glucose meter ([address] ST[address]uch Ultra2 Meter) misc Active benzonatate (TESSALON) 200 mg capsule TAKE 1 CAPSULE BY MOUTH 3 TIMES A DAY NEEDED FOR COUGH Active TravelCLICKTouch Ultra Test strip USE TO TEST 3 TIMES DAILY 4 Active clobetasoL (TEMOVATE) 0.05 % external solution PLEASE SEE ATTACHED FOR DETAILED DIRECTIONS Active fluconazole (DIFLUCAN) 150 mg tablet TAKE 2 TABLETS BY MOUTH TODAY THEN REPEAT IN 1 WEEK Active LANTUS 100 unit/mL (3 mL) pen for injection INJECT 28 UNITS UNDER THE SKIN TWICE DAILY 4 Active BD Ultra-Fine Mini Pen Needle 31 gauge x 3/16 needle USE DIRECTED WITH LANTUS TWICE DAILY 4 Active pimecrolimus (ELIDEL) 1 % cream APPLY 1 APPLICATION ONTO THE FACE TWICE DAILY FOR FLARES Active Mounjaro 7.5 mg/0.5 mL pen injector 4 Active albuterol HFA (PROVENTIL HFA,VENTOLIN HFA,PROAIR HFA) 90 mcg/actuation inhaler Inhale 2 puffs every 4 (four) hours Active azithromycin (ZITHROMAX) 500 mg tablet TAKE 1 TABLET BY MOUTH 1 HOUR PRIOR TO ALL DENTAL APPOINTMENTS Active lisinopriL (PRINIVIL,ZESTR [place]) 10 mg tablet Take 1 tablet twice a day by oral route for 30 days. Active triamterene-hyd roCHLOROthiazid e 37.5-25 mg per tablet/capsule Take 1 tablet/capsule by mouth every morning Active Active Problems Problem Noted Date Diagnosed Date Adhesive capsulitis of shoulder 01/08/2023 Migraine 01/08/2023 Osteoarthritis of knee 01/08/2023 Discharge from right nipple 01/08/2023 Family history of breast cancer 07/06/2021 Endometrial carcinoma 02/09/2021 Abnormal mammogram 01/05/2021 Essential hypertension 02/05/2020 Diabetes mellitus 10/01/2019 Hypertriglyceridemia 02/18/2019 Allergic rhinitis 09/20/2016 Vitamin D deficiency 09/13/2016 Gouty arthropathy 08/31/2016 Social History Tobacco Use Types Packs/Day Years Used Date Smoking Tobacco: Never Smokeless Tobacco: Never Tobacco Cessation:Counseling Given: Not Answered Comments Unknown Sex and Gender Information Value Date Recorded Sex Assigned at Not on file Legal Sex Female 11:01 AM CDT Gender Identity Female 01/04/2021 10:41 AM CDT Sexual Orientation Straight 01/04/2021 10 :41 AM CDT Last Filed Vital Signs Vital Sign Reading Time Taken Comments Blood Pressure 137/81 01/17/2024 10:46 AM SURGICAL CODER Pulse 88 01/17/2024 10:46 AM SURGICAL CODER Temperature - - Respiratory Rate 20 01/17/2024 10:4 6 AM SURGICAL CODER Oxygen Saturation 98% 01/17/2024 10: 46 AM SURGICAL CODER Inhaled Oxygen Concentration - - Weight 96.5 kg (212 lb 12.8 oz) 024 10:46 AM SURGICAL CODER Height 166 cm (5' 5.35 ) 01/17/2024 10: 46 AM SURGICAL CODER Body Mass Index 35.03 01/17/2024 10:46 AM SURGICAL CODER Plan of Treatment Not on file Procedures Procedure Name Priority Date/Time Associated Diagnosis Comments SCREENING MAMMOGRAM BILATERAL W SEEMA Schedule Routine, Read Routine (OP Routine) 01/17/2024 11:55 AM SURGICAL CODER Discharge from right nipple Encounter for screening mammogram for malignant neoplasm of breast from Last 3 Months or Most Recently Relevant to Health Maintenance Results * Screening Mammogram Bilateral W Seema (01/17/2024 11:55 AM SURGICAL CODER) Anatomical Region Laterality Modality Breast Bilateral Mammography Narrative 01/18/2024 9:25 AM SURGICAL CODER Mammogram Technique: Bilateral Digital Breast Tomosynthesis, Bilateral C-view 2D Screening mammogram. Views obtained: bilateral craniocaudal and bilateral mediolateral oblique. Computer Aided Detection was performed. Mammogram Findings: The present examination has been compared to prior imaging studies performed at [facility] on 12/21/2021, 01/12/2022 and 01/04/2023. There are scattered areas of fibroglandular density. There is no suspicious abnormality in either breast. Impression: There is no mammographic evidence of malignancy. Annual screening mammography is recommended. OVERALL FINAL ASSESSMENT: BI-RADS CATEGORY 1: Negative. Procedure Note Sun Lloyd MD - 01/18/2024 Mammogram Technique: Bilateral Digital Breast Tomosynthesis, Bilateral C-view 2D Screening mammogram. Views obtained: bilateral craniocaudal and bilateral mediolateral oblique. Computer Aided Detection was performed. Mammogram Findings: The present examination has been compared to prior imaging studies performed at [facility] on 12/21/2021, 01/12/2022 and 01/04/2023. There are scattered areas of fibroglandular density. There is no suspicious abnormality in either breast. Impression: There is no mammographic evidence of malignancy. Annual screening mammography is recommended. OVERALL FINAL ASSESSMENT: BI-RADS CATEGORY 1: Negative. Haven Thurston NP IMG MAMMO PROCEDURES Fi nal Result from Last 3 Months or Most Recently Relevant to Health Maintenance Insurance MEDICARE [place] [address] [place] [address] [facility] Care Teams Accessibility Lift Technician Relationship Specialty Start Date End Date Chanelle Ramsey NP [address] [place] [id number] PCP - General Nurse Practitioner 01/17/24
--- OUTSIDE RECORDS SUMMARY | 2024-06-13 10:19 | XMS_ITS | Clinical Summary ---
Author Organization [facility] Address [address] [place] [address] Care Team Providers Care Ticket Collector Name Role Phone Chanelle Ramsey NP Primary Care Provider [phone] Allergies Active Allergy Reactions Criticality Noted Date [...] High 01/05/2021 Sitagliptin Diarrhea,Stomach upset Low 01/05/2021 Owizqci-Fkl-Vco Reductase Inhibitors Joint pain,Other (See comments) Low [...] tablet by mouth daily 2 Active lancets (ScanTouch Delica Plus Lancet) 30 gauge misc USE DIRECTED CHECK BLOOD SUGAR ONCE A DAY Active blood-glucose meter (GoNogginguch Ultra2 Meter) misc Active benzonatate (TESSALON) 200 mg capsule TAKE 1 CAPSULE BY MOUTH 3 TIMES A DAY NEEDED FOR COUGH Active ScanTouch Ultra Test strip USE TO TEST 3 [...] Vitamin D deficiency 09/13/2016 Gouty arthropathy 08/31/2016 Surgical History Surgery Date Site/Laterality Comments APPENDECTOMY 03/06/1962 - 03/05/1963 GALLBLADDER SURGERY 03/06/1981 - 03/05/1982 KNEE SURGERY 03/06/2009 - 03/05/2010 Left KNEE SURGERY 03/06/2012 - 03/05/2013 Right DILATION AND CURETTAGE OF UTERUS 2005, 2008, 2009, 2014, 2018, COLONOSCOPY 03/06/2010 - 03/05/2011 Family History Medical History Relation Name Comments Breast cancer Niece Pt states that this was thought to be related to radiation for the lymphoma Lymphoma Niece Breast cancer Sister Relation Name Status Comments Niece Sister Social History Tobacco Use Types Packs/Day Years Used Date Smoking Tobacco: Never Smokeless Tobacco: Never Tobacco Cessation:Counseling Given: Not Answered Comments Unknown Sex and Gender Information Value Date Recorded Sex Assigned at Not on file Legal Sex Female 11:01 AM CDT Gender Identity Female 01/04/2021 10:41 AM CDT Sexual Orientation Straight 01/04/2021 10 :41 AM CDT Obstetrics History Last Filed Vital Signs Vital Sign Reading Time Taken Comments Blood Pressure 137/81 01/17/2024 10:46 AM ONLINE MERCHANT Pulse 88 01/17/2024 10:46 AM ONLINE MERCHANT Temperature - - Respiratory Rate 20 01/17/2024 10:4 6 AM ONLINE MERCHANT Oxygen Saturation 98% 01/17/2024 10: 46 AM ONLINE MERCHANT Inhaled Oxygen Concentration - - Weight 96.5 kg (212 lb 12.8 oz) 024 10:46 AM ONLINE MERCHANT Height 166 cm (5' 5.35 ) 01/17/2024 10: 46 AM ONLINE MERCHANT Body Mass Index 35.03 01/17/2024 10:46 AM ONLINE MERCHANT Plan of Treatment Health Maintenance Due Date Last Done Comments Albumin Creatinine Ratio, Urine 1955 Colon Cancer Screening-Colonoscopy 1955 Depression Screening 1955 Fall Risk Assessment 1955 Hemoglobin A1C 1955 Hepatitis C Screening 1955 Osteoporosis Screening-Bone Density Scan 1955 eGFR 1955 Dilated Eye Exam 1955 Foot Exam 1955 Lipid Panel 1955 DTaP/Tdap/Td Vaccine (1 - Tdap) 1966 Hepatitis B Screening 1973 Pneumococcal vaccine 65+ (1 of 2 - PCV) 1974 Zoster Vaccine (1 of 2) 2005 Well Visit 65+ 02/26/2020 Covid-19 Vaccine (5 - 2023-2 5 season) 2023 02/08/2022, 01/06/2021, 05/19/2020, Additional history exists Influenza Vaccine (#1) 2023 02/08/2022 Breast Cancer Screening-Mammogram 01/16/2025 01/17/2024, 01/04/2023, 12/21/2021, Additional history exists Procedures Procedure Name Priority Date/Time Associated Diagnosis Comments SCREENING MAMMOGRAM BILATERAL W SEEMA Schedule Routine, Read Routine (OP Routine) 01/17/2024 11:55 AM ONLINE MERCHANT Discharge from right nipple Encounter for screening mammogram for malignant neoplasm of breast from Last 3 Months or Most Recently Relevant to Health Maintenance Results * Screening Mammogram Bilateral W Seema (01/17/2024 11:55 AM ONLINE MERCHANT) Anatomical Region Laterality Modality Breast Bilateral Mammography Narrative 01/18/2024 9:25 AM ONLINE MERCHANT Mammogram Technique: Bilateral Digital Breast Tomosynthesis, Bilateral C-view 2D Screening mammogram. Views obtained: bilateral craniocaudal and bilateral mediolateral oblique. Computer Aided Detection was performed. Mammogram Findings: The present examination has been compared to prior imaging studies performed at [facility] on 12/21/2021, 01/12/2022 and 01/04/2023. There [...] compared to prior imaging studies performed at [facility] on 12/21/2021, 01/12/2022 and 01/04/2023. There are scattered areas of fibroglandular density. There is no suspicious abnormality in either breast. Impression: There is no mammographic evidence of malignancy. Annual screening mammography is recommended. OVERALL FINAL ASSESSMENT: BI-RADS CATEGORY 1: Negative. Haven Thurston NP IMG MAMMO PROCEDURES Fi nal Result from Last 3 Months or Most Recently Relevant to [place] [address] MEDICARE [facility] MEDICARE [facility] Care Teams Ticket Collector Relationship Specialty Start Date End Date Chanelle Ramsey NP [address] [place] [id number] PCP - General Nurse Practitioner 01/17/24
[2024-06-13 14:13] LABS: Erythrocyte Sedimentation Rate 20 mm/hr (0-20)
[2024-06-13 15:18] LABS: CRP 1.1 mg/dL (<1.0)
== END 2024-06-13 09:44 | disposition home or self-care (01) ==
PROVIDERS: PCP Nurse Practitioner Adult Health; Visit Provider Physician Assistant Surgical
DX: T85.698A Other mechanical complication of other specified internal prosthetic devices, implants and grafts, initial encounter (principal); T84.039A Mechanical loosening of unspecified internal prosthetic joint, initial encounter
CPT/HCPCS: 36415; 85027; 85652; 86140

== ENCOUNTER 2024-06-21 10:03 | Outpatient (CLI) | payer MEDICARE, SELFPAY ==
--- NOTE | ~2024-06-21 | US_ITS ---
EXAMINATION: US knee asp inj w image RT DATE: 06/21/2024 11:08 INDICATION: Right knee pain TECHNIQUE: The procedure including the risks and benefits was discussed with the patient. Risks discu ssed included bleeding and infection. The patient understood the risks and agreed to proceed. The sk in overlying the right suprapatellar pouch was prepped and draped in usual sterile fashion. Anesthet ic was administered with 1% lidocaine subcutaneously. An 22 gauge spinal needle was advanced under c ontinuous ultrasound observation into the minimal amount of fluid at the suprapatellar pouch. 4 mm of yellowish fluid was aspirated and sent to the lab. The needle was removed and the entry site was cl eaned and dressed. Post procedure ultrasound demonstrated no hemorrhage. FINDINGS: Ultrasound images demonstrate spinal needles advanced into the very small collection of flu id at the suprapatellar pouch of the right knee. IMPRESSION: 1. Successful Ultrasound-guided right knee joint aspiration. Reviewed, dictated and finalized at location A.
--- OUTSIDE RECORDS SUMMARY | 2024-06-21 10:16 | XMS_ITS | Continuity of Care Document ---
Author Organization [facility]. If a dditional information is needed, contact Health Information Management at [phone] Address [address] [place] [address] Phone Care Team Providers Care Cognos Name Role Phone Unavailable Unavailable Unavailable Unavailable Unavailable Unavailable Unavailable Unavailable
--- OUTSIDE RECORDS SUMMARY | 2024-06-21 10:17 | XMS_ITS | Continuity of Care Document ---
Author Organization [facility] Address [address] [place] [address] Phone Care Team Providers Care Insurance Claims Assistant Name Role Phone Gui Roque Unavailable Unavailable Procedures Procedure Date Office/outpatient Visit, [facility] Fundus Photography W/ Report Advance Directives Directive Yes / No Effective Date File Name No Information Encounters Encounter Description Practice Location Reason(s) For Visit Diagnoses Date Provider Providers Copied on Encounter Office/outpat ient Visit, [facility], [address], [place], [place], [id number], [place] tel:[phone] [facility] No Information 9-200 7 Mya Messer. [address] [place] [address] , [address], [place], [address], [place]. tel:[phone] Referring Provider: [facility] [address], [place], [place], [facility]. tel:[phone] Family History Family Member Type Diagnosis Age At Onset No Information Payers Payer name Insurance type Covered alliance party ID Authoriza tion(s) No Information Social History [...]
--- OUTSIDE RECORDS SUMMARY | 2024-06-21 10:17 | XMS_ITS | Data Portability ---
Author Organization [place] [facility], Main Office Address [address] [place] [address] Care Team Providers Care Cadd Operator Name Role Phone AMANDA HURT Primary Care Provider AMANDA HURT Referring Provider [phone] Assessment Encounter Date Assessment Date Assessment LastModified [...] yte sedimenta tion rate), blood [email or web address] [facility] (Lab), [address], [place], [address], 06/07/2024 12:44:32 C-reactiv e protein, quantitat rosa, serum or plasma 2024 025 [facility] ([facility]), [address], [place], [address], 06/14/2024 09:15:01 CBC 2024 025 [facility] ([facility]), [address], [place], [address], 06/13/2024 14:39:12 Referral None recorded. Procedures joint aspiratio n, fluorosco pic guided (PROC) - Please send fluid for aerobic/a narobic, C&S, gram stain, cell count, crystals for R knee. [email or web address] [facility], [address] [facility] [address], [place], [address], 06/21/2024 09:22:50 Surgeries None recorded. Imaging XR, knee, 3 view 2024 025 [email or web address] [facility] [place], [address], [place], [address], 06/07/2024 12:46:18 Medication Orders benzonata te 200 mg capsule 2022 023 [email or web address] [id number], [address], [place], [address], 06/07/2024 12:10:27 albuterol sulfate HFA 90 mcg/actua tion aerosol inhaler 2022 023 [email or web address] [id number], [address], [place], [address], 06/07/2024 12:09:47 Zithromax Z-Jose 250 mg tablet 2022 023 [email or web address] [facility][id number], [address], [place], [address], 06/07/2024 12:10:11 Medrol (Jose) 4 mg tablets in a dose pack 2022 023 [email or web address] [facility] #[id number], [address], [place], [address], 06/07/2024 12:13:09 Patient TargetsNo targets recorded. Patient [...] diabe luke for child roderick. Not Available [facility] [address], [place], [address], 12/04/2021 06:00:19 12/04/19 22 12/04/2021 VITAM IN [...] /MS is recom eugene d: order code 00077 (afshin ents >2yrs ). See Note 1 Note 1 For addit ional infor ozzy parson e refer to http: //[facility] gonzalez Wade gnmarisol ics.c om/fa q/FAQ 199 (This link is being provi ded for infor brittani calero/ anatoliy cruz purpo ses only. ) Not Available [address], [address], 12/04/2021 06:00:18 12/04/19 22 12/04/2021 HEPAT IC FUNCT ION PANEL protein, total 7.2 g/dL 6.1-8. 1 normal Not Available [address], [address], 12/04/2021 06:00:18 12/04/19 22 12/04/2021 HEPAT IC FUNCT ION PANEL albumin 4.2 g/dL 3.6-5. 1 normal Not Available [address], [address], 12/04/2021 06:00:18 12/04/19 22 12/04/2021 HEPAT IC FUNCT ION PANEL globulin 3.0 g/dL_ (calc ) 1.9-3. 7 normal Not Available [address], [address], 12/04/2021 06:00:18 12/04/19 22 12/04/2021 HEPAT IC FUNCT ION PANEL albumin/glob ulin ratio 1.4 (calc ) 1.0-2. 5 normal Not Available [address] [address] [place], [address], 12/04/2021 06:00:18 12/04/19 22 12/04/2021 HEPAT IC FUNCT ION PANEL bilirubin, total 0.8 mg/dL 0.2-1. 2 normal Not Available [address] [address] [place], [address], 12/04/2021 06:00:18 12/04/19 22 12/04/2021 HEPAT IC FUNCT ION PANEL bilirubin, direct 0.1 mg/dL < or = 0.2 normal Not Available [address] [address] [place], [address], 12/04/2021 06:00:18 12/04/19 22 12/04/2021 HEPAT IC FUNCT ION PANEL bilirubin, indirect 0.7 mg/dL _(mariah c) 0.2-1. 2 normal Not Available [address] [address] [place], [address], 12/04/2021 06:00:18 12/04/19 22 12/04/2021 HEPAT IC FUNCT ION PANEL alkaline phosphatase 103 U/L 37-153 normal Not Available [facility] [address] [address] [place], [address], 12/04/2021 06:00:18 12/04/19 22 12/04/2021 HEPAT IC FUNCT ION PANEL AST 33 U/L 10-35 normal Not Available [address] [address] [place], [address], 12/04/2021 06:00:18 12/04/19 22 12/04/2021 HEPAT IC FUNCT ION PANEL ALT 45 U/L 6-29 high Not Available [facility] [address] [address] [place], [address], 12/04/2021 06:00:18 12/04/19 22 12/04/2021 BASIC METAB OLIC PANEL creatinine 0.83 mg/dL 0.50-1 .05 normal Not Available [address], [address], 12/04/2021 06:00:17 12/04/19 22 12/04/2021 BASIC METAB OLIC PANEL glucose 139 mg/dL 65-99 high Fasti ng refer ence inter mohamud For someo ne witho ut known diabe luke, a gluco se value >125 mg/dL indic ates that they may have diabe luke and this shoul d be confi rmed with a follo w-up test. Not Available [address], [address], 12/04/2021 06:00:17 12/04/19 22 12/04/2021 BASIC METAB OLIC PANEL urea nitrogen (BUN) 16 mg/dL 7-25 normal Not Available [address], [address], 12/04/2021 06:00:17 12/04/19 22 12/04/2021 BASIC METAB OLIC PANEL eGFR 78 mL/mi n/1.7 3m2 > or = 60 normal The eGFR is based on the CKD-E PI 2020 equat ion. To calcu late the new eGFR from a previ ous Creat inine or Cysta tin C resul t, go to https ://talon winslow/lesia lui s/ kdoqi /gfr% 5Fcal culat or Not Available [address] [address] [place], [address], 12/04/2021 06:00:17 12/04/19 22 12/04/2021 BASIC METAB OLIC PANEL BUN/creatini ne ratio not applic able (calc ) 6-22 Not Available [facility] [address] [address] [place], [address], 12/04/2021 06:00:17 12/04/19 22 12/04/2021 BASIC METAB OLIC PANEL sodium 138 mmol/ L 135-14 6 normal Not Available [address], [address], 12/04/2021 06:00:17 12/04/1912/04/2021 BASIC METAB OLIC PANEL potassium 3.5 mmol/ L 3.5-5. 3 normal Not Available [address], [address], 12/04/2021 06:00:17 12/04/19 22 12/04/2021 BASIC METAB OLIC PANEL chloride 100 mmol/ L 98-110 normal Not Available [address], [address], 12/04/2021 06:00:17 12/04/19 22 12/04/2021 BASIC METAB OLIC PANEL carbon dioxide 29 mmol/ L 20-32 normal Not Available [address], [address], 12/04/2021 06:00:17 12/04/1912/04/2021 BASIC METAB OLIC PANEL calcium 9.7 mg/dL 8.6-10 .4 normal Not Available [address], [address], 12/04/2021 06:00:17 12/04/1912/04/2021 LIPID PANEL , STAND [...] 2061- 2068 (http ://ed ucati on.Qu Kevin Car reviews. com/f aq/FA Q164) Not Available [address] [address] [place], [address], 12/04/2021 06:00:17 12/04/19 22 12/04/2021 LIPID PANEL , STAND ADRYAN cholesterol, total 174 mg/dL <200 normal Not Available [address], [address], 12/04/2021 06:00:17 12/04/1912/04/2021 LIPID PANEL , STAND ADRYAN HDL cholesterol 65 mg/dL > or = 50 normal Not Available [address], [address], 12/04/2021 06:00:12/04/1912/04/2021 LIPID PANEL , STAND ADRYAN triglyceride s 160 mg/dL <150 high Not Available [address], [address], 12/04/2021 06:00:17 12/04/19 22 12/04/2021 LIPID PANEL , STAND ADRYAN chol/HDLC ratio 2.7 (calc ) <5.0 normal Not Available [address], [address], 12/04/2021 06:00:17 12/04/1912/04/2021 LIPID PANEL , STAND ADRYAN non HDL cholesterol 109 mg/dL _(mariah c) <130 normal For patie nts with diabe luke plus 1 major ASCVD risk facto r, treat ing to a non-H DL-C goal of <100 mg/dL (LDL- C of <70 mg/dL ) is consi ronald a thera pedyllani c optio n. Not Available [address], [address], 12/04/2021 06:00:17 06/10/19 23 06/10/2022 LIPID PANEL , STAND ADRYAN cholesterol, total 167 mg/dL <200 normal Not Available [address], [address], 06/10/2022 04:00:17 06/10/19 23 06/10/2022 LIPID PANEL , STAND ADRYAN HDL cholesterol 67 mg/dL > or = 50 normal Not Available [address] [address] [place], [address], 06/10/2022 04:00:17 06/10/19 23 06/10/2022 LIPID PANEL , STAND ADRYAN triglyceride s 163 mg/dL <150 high Not Available [address], [address], 06/10/2022 04:00:17 06/10/1906/10/2022 LIPID PANEL , STAND [...] n, which is a valid ated novel ario shelby crews r accur acy than the Fried christopher equat ion in the estim ation of LDL-C . Manisha BAUER et al. MEAGAN. 2013; 310(1 9): 2061- 2068 (http ://ed ucati on.Qu estDi Her[employer]. com/f aq/FA Q164) Not Available [address], [address], 06/10/2022 04:00:17 06/10/19 23 06/10/2022 LIPID PANEL , STAND ADRYAN chol/HDLC ratio 2.5 (calc ) <5.0 normal Not Available [address], [place], [address], 06/10/2022 04:00:17 06/10/1906/10/2022 LIPID PANEL , STAND ADRYAN non HDL cholesterol 100 mg/dL _(mariah c) <130 normal For patie nts with diabe luke plus 1 major ASCVD risk facto r, treat ing to a non-H DL-C goal of <100 mg/dL (LDL- C of <70 mg/dL ) is consi dered a thera peuti c optio n. Not Available [facility] [address] [address] [place], [address], 06/10/2022 04:00:17 06/10/1906/10/2022 URIC ACID uric acid 6.9 mg/dL 2.5-7. 0 normal Thera peuti c targe t for gout patie nts: <6.0 mg/dL Not Available [facility] [address] [address] [place], [address], 06/10/2022 04:00:17 06/10/1906/10/2022 COMPR EHENS ROSA METAB OLIC PANEL glucose 153 mg/dL 65-99 high Fasti ng refer ence inter mohamud For someo ne witho ut known diabe luke, a gluco se value >125 mg/dL indic ates that they may have diabe luke and this shoul d be confi rmed with a follo w-up test. Not Available [facility] [address] [address] [address] , [place], [address], 06/10/2022 04:00:18 06/10/1906/10/2022 COMPR EHENS ROSA METAB OLIC PANEL urea nitrogen (BUN) 17 mg/dL 7-25 normal Not Available [facility] [address] [address] [place], [address], 06/10/2022 04:00:18 06/10/1906/10/2022 COMPR EHENS ROSA METAB OLIC PANEL creatinine 0.84 mg/dL 0.50-1 .05 normal Not Available [address], [address], 06/10/2022 04:00:18 06/10/19 23 06/10/2022 COMPR EHENS [...] kdoqi /gfr% 5Fcal culat or Not Available [address], [address], 06/10/2022 04:00:18 06/10/19 23 06/10/2022 COMPR EHENS ROSA METAB OLIC PANEL BUN/creatini ne ratio NOT APPLIC ABLE (calc ) 6-22 Not Available [address], [address], 06/10/2022 04:00:18 06/10/19 23 06/10/2022 COMPR EHENS ROSA METAB OLIC PANEL sodium 138 mmol/ L 135-14 6 normal Not Available [address], [address], 06/10/2022 04:00:18 06/10/19 23 06/10/2022 COMPR EHENS ROSA METAB OLIC PANEL potassium 4.0 mmol/ L 3.5-5. 3 normal Not Available [address], [address], 06/10/2022 04:00:18 06/10/1906/10/2022 COMPR EHENS ROSA METAB OLIC PANEL chloride 100 mmol/ L 98-110 normal Not Available [address], [address], 06/10/2022 04:00:18 04/06/20 23 06/10/2022 COMPR EHENS ROSA METAB OLIC PANEL carbon dioxide 28 mmol/ L 20-32 normal Not Available [address], [address], 06/10/2022 04:00:18 06/10/19 23 06/10/2022 COMPR EHENS ROSA METAB OLIC PANEL calcium 10.0 mg/dL 8.6-10 .4 normal Not Available [address], [address], 06/10/2022 04:00:18 06/10/19 23 06/10/2022 COMPR EHENS ROSA METAB OLIC PANEL protein, total 7.4 g/dL 6.1-8. 1 normal Not Available [address], [address], 06/10/2022 04:00:18 06/10/19 23 06/10/2022 COMPR EHENS ROSA METAB OLIC PANEL albumin 4.1 g/dL 3.6-5. 1 normal Not Available [address], [address], 06/10/2022 04:00:18 06/10/19 23 06/10/2022 COMPR EHENS ROSA METAB OLIC PANEL globulin 3.3 g/dL_ (calc ) 1.9-3. 7 normal Not Available [address], [address], 06/10/2022 04:00:18 06/10/19 23 06/10/2022 COMPR EHENS ROSA METAB OLIC PANEL albumin/glob ulin ratio 1.2 (calc ) 1.0-2. 5 normal Not Available [address], [address], 06/10/2022 04:00:18 06/10/19 23 06/10/2022 COMPR EHENS ROSA METAB OLIC PANEL bilirubin, total 0.7 mg/dL 0.2-1. 2 normal Not Available [address] [address] [place], [address], 06/10/2022 04:00:18 06/10/19 23 06/10/2022 COMPR EHENS ROSA METAB OLIC PANEL alkaline phosphatase 90 U/L 37-153 normal Not Available [facility] [address] [address] [place], [address], 06/10/2022 04:00:18 06/10/19 23 06/10/2022 COMPR EHENS ROSA METAB OLIC PANEL AST 50 U/L 10-35 high Not Available [address] [address] [place], [address], 06/10/2022 04:00:18 06/10/19 23 06/10/2022 COMPR EHENS ROSA METAB OLIC PANEL ALT 64 U/L 6-29 high Not Available [address] [address] [place], [address], 06/10/2022 04:00:18 06/10/1906/10/2022 VITAM IN D,25- [place],TO [...] /MS is recom eugene d: order code 46186 (afshin ents >2yrs ). See Note 1 Note 1 For addit ional infor ozzy parson e refer to http: //anuel rooney.Aldo Alvaradoia gnost ics.c om/fa q/FAQ 199 (This link is being provi ded for infor brittani nal/ educa magnolia l purpo ses only. ) Not Available [facility] [address] [place], [address], 06/10/2022 04:00:19 06/10/19 23 06/10/2022 HEMOG LOBIN [...] ntly, no conse nsus exist s regar sterling use of hemog lobin A1c for diagn osis of diabe luke for child roderick. Not Available [facility] [address] [place], [address], 06/10/2022 04:00:19 07/01/1906/30/2022 rapid strep group A, throa t STREP A positi ve Not Available [facility] [address], [place], [address], 06/30/2022 11:33:47 12/24/19 22 XR, knee No observ ation record ed. [id number] [facility] [place] [address], [place], [address], 05/04/2022 06:08:49 01/13/20 22 01/12/2022 imagi ng/di agnos tic resul t No observ ation record ed. [id number] [facility] [address] [facility], [place], [address], 05/04/2022 06:08:49 01/13/20 22 01/12/2022 imagi ng/di agnos tic resul t No observ ation record ed. [id number] [facility] [address] [facility], [place], [address], 05/04/2022 06:08:49 05/18/19 23 05/16/2022 XR, elbow No observ ation record ed. [email or web address] [facility] [address] [facility] [address], [place], [address], 05/17/2022 12:11:31 05/21/19 23 05/20/2022 CT, elbow , w/o contr ast No observ ation record ed. [email or web address] [facility] [address], [place], [address], 05/20/2022 11:23:15 06/08/19 25 XR, knee, 3 view No observ ation record ed. [email or web address] [facility] [place] [address] [facility] [address], [place], [address], 06/07/2024 12:44:03 Result Notes None recorded. Problems Name Problem SNOMED Code Status Onset Date Resolution Date Notes Provider Name and Address Organization Details Recorded Time Gouty arthropat hy 468567274 Active 2016 Not Available [facility] 4 15:46:10 Osteoarth ritis of knee 666266095 Active Not Available [facility] 4 15:46:10 Endometri al carcinoma 307125084 Active 2020 Not Available [facility] 4 15:46:10 Edema 368395436 Completed Not Available [facility] 3 06:01:00 Hypertrig lyceridem ia 168088959 Active 2018 Not Available [facility] 4 15:46:10 Knee pain Active Not Available [facility] 4 15:46:10 Influenza vaccinati on declined 380533721 Active 2018 Not Available [facility] 4 15:46:10 Vitamin D deficienc y 06902540 Active 2016 Not Available [facility] 4 15:46:10 Elevated blood-pre ssure reading without diagnosis of hypertens ion 746171203 Completed 201802/06/2020 Not Available [facility] 3 06:01:00 Migraine 52427367 Active Not Available [facility] 4 15:46:10 Adhesive capsuliti s of shoulder 408449772 Active Not Available [facility] 4 15:46:10 Newly diagnosed diabetes 445271467 Completed 201810/01/2019 Not Available [facility] 3 06:01:00 Disorder of kidney and/or ureter 204079424 Active Not Available [facility] 4 15:46:10 Hyperlipi demia 06893210 Active 2021 Not Available [facility] 4 15:46:10 Essential hypertens ion 60307641 Active 2019 Not Available [facility] 4 15:46:10 Allergic rhinitis 86803190 Active 2016 Not Available [facility] 4 15:46:10 Diabetes mellitus 07186870 Active 2019 Not Available [facility] 4 15:46:10 Pain in throat 686430191 Active 2022 Not Available [facility] 4 15:46:10 Streptoco ccal sore throat 30686118 Active 2022 Not Available [facility] 4 15:46:10 Upper respirato ry infection 77862813 Active 2022 Not Available [facility] 4 15:46:10 Acute urinary tract infection 183910610 Active 2022 Not Available [facility] 4 15:46:10 Acute sinusitis 04541552 Active 2022 Not Available [facility] 4 15:46:10 Cough 37558073 Active 2022 Not Available [facility] 4 15:46:10 Candidias is of vagina 28728610 Active 2023 CRISSY Cardenas [address], [place], [address] , [place] [facility] 4 14:01:13 Traveler' s diarrhea 65601325 Active 2023 Angie Galloway MD [address], [facility] [address], [place], [address] , [place] [facility] 4 18:03:26 Pain of bilateral knee joints 05791396092 4104 Active 2024 FERMÍN Molina, [place] [facility] 5 12:15:34 Mechanica l complicat ion of implant 091926329 Active 2024 Mirella monae, [place] [facility] 5 12:29:23 Problem Notes None recorded. Procedures Surgical History Date Name Laterality Status Provider Name and Address Organization Details Recorded Time Colonoscopy completed Not Available [facility] 05/04/2022 05:54:46 Cholecystectomy completed Grace bauer [employer] [place] [facility] 06/07/2024 12:18:57 Knee Replacement completed Not Available [facility] 05/04/2022 05:54:46 Appendectomy completed Grace Ventura CNA [place] [facility] 06/07/2024 12:18:32 Hysterectomy completed Grace Ventura [employer] [place] [facility] 06/07/2024 12:19:07 D & c after delivery completed Not Available [facility] 05/04/2022 05:54:46 Imaging Results Imaging Date Name Status LastModified by Organiz ation Details LastModified Time 01/12/2022 imaging/diagn ostic result completed [id number] [facility] [address] [place] [address], [place], [address], 05/04/2022 06:08:49 01/12/2022 imaging/diagn ostic result completed [id number] [facility] [address] [facility], [place], [address], 05/04/2022 06:08:49 12/23/2021 XR, knee completed [id number] 026 [facility] [place] [address], [place], [address], 05/04/2022 06:08:49 05/16/2022 XR, elbow [email or web address] [address] [facility] [address], [place], [address], 05/17/2022 12:11:31 05/20/2022 CT, elbow, w/o contrast completed [email or web address] [facility] [address], [place], [address], 05/20/2022 11:23:15 06/07/2024 XR, knee, 3 view completed [email or web address] [facility] [place] [address], [place], [address], 06/07/2024 12:44:03 Procedure Notes None recorded. Medical Equipment None Reported. Allergies Allergen ID Allergen Name Allergen Category Reaction Reaction Severity Criticality Documentation Date Start Date Code Code System Note Provider Name and Address Organization Details Recorded Time 53407 Topamax medicatio n other Not available Not available 05/04/2022 07788 3 RxNorm Not Available [facility] 3 06:08:34 03219 tetanus and diphtheri a toxoids Not available hives Not available Not available 05/04/2022 26393 UNK Not Available [facility] 3 06:08:35 41387 Product containin g 3-hydroxy -3-methyl glutaryl- coenzyme A reductase inhibitor (product) medicatio n arthralgi a (joint pain) other Not available Not available Not available 05/04/2022 76951 009 SNOMED Not Available [facility] 3 06:08:35 58340 Relafen medicatio n itching Not available Not available 05/04/2022 23431 4 RxNorm Not Available [facility] 3 06:08:35 77960 phentermi ne medicatio n Not available Not available Not available 05/04/2022 8152 RxNorm Not Available [facility] 3 06:08:35 66478 Product containin g penicilli n (product) medicatio n Not available Not available Not available 05/04/2022 49774 8001 SNOMED Not Available [facility] 3 06:08:35 96327 naproxen medicatio n nausea Not available Not available 05/04/2022 7258 RxNorm Not Available [facility] 3 06:08:35 24911 metformin medicatio n Not available Not available Not available 05/04/2022 6809 RxNorm Not Available Pending sale to [facility] 3 06:08:35 16939 Januvia medicatio n Not available Not available Not available 05/04/2022 65778 6 RxNorm Not Available [facility] 3 06:08:35 77580 iodine medicatio n Not available Not available Not available 05/04/2022 5933 RxNorm Not Available [facility] 3 06:08:35 32507 Iodinated contrast media (substanc e) medicatio n Not available Not available Not available 05/04/2022 15332 2004 SNOMED Not Available Pending sale to [facility] 3 06:08:35 59670 erythromy jaci medicatio n nausea Not available Not available 05/04/2022 4053 RxNorm Can take azith romyc in [facility], [facility] [address] [facility], [facility] [address], [place], [address] [place] [address] [employer] 3 10:03:58 23517 codeine medicatio n Not available Not available Not available 05/04/2022 2670 RxNorm Not Available Pending sale to [facility] 3 06:08:36 64654 Propylami ne derivativ e with histamine receptor antagonis t mechanism of action (substanc e) medicatio n other Not available Not available 05/04/2022 13451 8008 SNOMED Not Available [facility] 3 06:08:36 96401 adhesive tape environme nt,medica tion Not available Not available Not available 05/04/2022 05089 UNK Not Available Pending sale to [facility] 3 06:08:36 96296 tetracycl ine medicatio n nausea Not available Not available 03/08/2023 99552 RxNorm Kwamedonato Gomezd, DIRECTOR PUBLIC SERVICE-C [address] [facility], [facility] [address], [place], [address] , [facility] 4 10:44:30 Medications Name Sig Start Date [...] directed for 90 days. 09/18 completed amanda og last week- 05/26 Not Available Not Available [...] e Short Pen Needle 31 gauge x 07/19 DIRECTED TO USE WITH LANTUS NIGHTLY active [...] active Not Available Not Available Not Avai merary Mounjaro 7.5 mg/0.5 mL subcutane ous pen [...] % 98 % 84 /min 98.1 [degF] 28059.4 g 136 mm[Hg] 80 mm[Hg] Not Available [facility] 3 05:56:47 Date Recorded Body height Provider Name an d Address Organization Details Last Updated DateTime 12/23/2021 165.1 cm Not Available [facility] 3 05:56:48 Date Recorded Body height Provider Name an d Address Organization Details Last Updated DateTime 06/30/2022 165.1 cm Lelia Gutierres [facility] [employer]ified [facility] 06/30/2022 11:57:47 Date Recorded Body height Body mass index (BMI) Body weight Body temperature Heart rate Oxygen saturation Oxygen saturation in Arterial blood by Pulse oximetry Systolic blood pressure Diastolic blood pressure Provider Name and Address Organization Details Last Updated DateTime 165.1 cm 35.4 kg/m2 82918.1 7 g 97 [degF] 85 /min 95 % 95 % 118 mm[Hg] 72 mm[Hg] Heather Baez [facility] [employer] [facility] [employer] [facility] 3 11:52:40 Date Recorded Body height Body mass index (BMI) Body weight Provider Name and Address Organization Details Last Updated DateTime 06/07/2024 165.1 cm 35.4 kg/m2 31451.17 g Grace Ventura CNA [place] [employer] [facility] Riskified [facility] 06/07/2024 12:08:14 Social History Question Answer Notes LastModified by Organizat ion Details LastModified Time Tobacco Smoking Status Never Smoker Not Available Pending sale to [facility] 05/04/2022 05:53:57 Do You Have An Advance Directive? No [id number] Information not available 05/04/2022 What Is Your Level Of Alcohol Consumption? Occasional [id number] Information not available 05/04/2022 What Is Your Level Of Caffeine Consumption? Occasional [id number] Information not available 05/04/2022 In The 14 Days Before Symptom Onset, Have You Had Close Contact With A Laboratory-confirm ed COVID-19 While That Case Was Ill? No [id number] Information not available 05/04/2022 In The 14 Days Before Symptom Onset, Have You Had Close Contact With A Person Who Is Under Investigation For COVID-19 While That Person Was Ill? No [id number] Information not available 05/04/2022 What Type Of Diet Are You Following? REGULAR [id number] Information not available 05/04/2022 Do You Use Any Illicit Or Recreational Drugs? No [id number] Information not available 05/04/2022 Have You Recently Traveled Abroad? No [id number] Information not available 05/04/2022 Sex: Unknown Functional Status None recorded. Mental Status None recorded. Family History Relationship Description Onset Age of this Age Resolved Age Notes LastModified by Organization Details LastModified Time Father Hypertensive disorder [id number] Not available 05/04/2022 05:54:47 Father Heart disease [id number].018 [id number] Not available 05/04/2022 05:54:47 Father Arthritis Not availa ble 06/07/2024 11:51:32 Father Family history of stroke [email or web address] Not available 06/07 11:51:32 Father Family history of malignant neoplasm [email or web address] Not available 06/07 11:51:32 Mother Hypertensive disorder [id number] Not available 05/04/2022 05:54:47 Mother Heart disease [id number] [id number] Not available 05/04/2022 05:54:47 Mother Kidney disease MIGRATION.803 [id number] Not available 05/04/2022 05:54:48 Mother Arthritis [email or web address] Not availa ble 06/07/2024 11:51:32 Mother Osteoporosis [id number] Not yamila ilable 06/07/2024 11:51:32 Mother Blood coagulation disorder [email or web address] Not available 06/07 11:51:32 Sister Diabetes mellitus MIGRATION.519 [id number] Not available 05/04/2022 05:54:48 Sister Kidney disease MIGRATION.067 [id number] Not available 05/04/2022 05:54:48 Sister Complication of anesthesia [email or web address] Not available 06/2024 11:51:32 Sister Family history of malignant neoplasm [id number] Not available 06/07 11:51:32 Maternal Grandfather Heart disease [email or web address] Not available 2024 12:16:36 Maternal Grandmother Heart disease [email or web address] Not available 2024 12:16:40 Maternal Grandmother Family history of stroke [email or web address] Not available 2024 12:17:46 Paternal Grandfather Heart disease [email or web address] Not available 2024 12:16:50 Paternal Grandmother Heart disease [email or web address] Not available 2024 12:17:04 Medical History Condition Response CANCER: SPECIFY Y ARTHRITIS Y HEADACHES/MIGRAINES Y DIABETES, TYPE Y ALLERGIES/HAYFEVER Y GOUT Y HEARTBURN / REFLUX Y HAVE YOU BEEN HOSPITALIZED OR SEEN IN [facility] IN THE PAST YEAR ? Y HYPERTENSION Y Gynecological History Statement/Question Response Menses Monthly N Current Control Method Menopause Breast Problems no Discharge no Obstetrics History GPAL:G 0 P 0 0 0 0 Immunizations Vaccine Type Date Status Note Provider Georgi marques and Address Organization Details Recorded Time COVID-19, mRNA, LNP-S, PF, 30 mcg/0.3 mL dose 01/06/2021 completed Not Available Pending sale to [facility] 4 15:46:11 COVID-19, mRNA, LNP-S, PF, 100 mcg/0.5mL dose or 50 mcg/0.25mL dose 05/19/2020 completed Not Available Pending sale to [facility] 4 15:46:11 COVID-19, mRNA, LNP-S, PF, 100 mcg/0.5mL dose or 50 mcg/0.25mL dose 04/28/2020 completed Not Available Pending sale to [facility] 4 15:46:11 Past Encounters Encounter ID Performer Location Encounter Start Date Encounter Closed Date Diagnosis/Indication Diagnosis SNOMED-CT Code Diagnosis ICD10 Code Diagnosis Note [id number] [facility] [place] [address] 12/21/2020 00:00:00 12/22/2020 13:29:23 [id number] [facility] [place] [address] 05/20/2021 00:00:00 05/20/2021 11:52:06 [id number] [facility] [place] [address] 10/05/2021 00:00:00 10/05/2021 16:24:09 [id number] [facility] Sh[place] [facility] [place] [address] 12/15/2021 00:00:00 12/15/2021 10:48:00 [id number] [facility] [place] [address] [place] [address] 12/23/2021 00:00:00 12/23/2021 11:03:07 [id number] [facility] [place] [address] [place] [address] 02/07/2022 00:00:00 02/07/2022 12:40:25 [id number] Angie Galloway MD [facility] [place] [address] [place] [address] 06/30/2022 11:55:13 06/30/2022 13:42:18 [id number] CRISSY Cardenas [facility] [place] [address] [place] [address] 11/22/2022 11:46:38 11/22/2022 13:52:42 Upper respiratory infection [id number] J06.9 continues to have frequent cough, whitish/ye llow phlegm, struggles with cold chills,Usi ng claritin D, ibuprofen and cough gttswas given abx per our office ([facility] 11/02)-mild improvemen tprednison e per 11/12 [id number] DAVE Cooley [facility] [place] [address] [place] [address] 06/07/2024 11:48:52 06/07/2024 12:46:18 History of bilateral total knee replacement [id number] Z96.653 Pain of bi lateral knee joints [id number] 71784 M25.561 M25.562 Mechanical complication of implant [id number] T85.698A T84.039A Health Concerns Section Related Observation LastModified by Organization Detai ls LastModified Time None Recorded Concern Status LastModified by Organization Details LastModified Time None Recorded Advance Directives Directive N: Payers Encounter Date Sequence Insurance Name Policy Number Policy Hayes Covered Member ID Hayes Member ID Guarantor Name 06/30/2022 1 [place] Dena Rojas [id number] Dena Rojas 06/30/2022 2 [employer] OPTIONS (MEDICARE SUPPLEMENT) Dena Rojas [id number] Dena Rojas 11/22/2022 1 [place] Dena Rojas [id number] Dena Rojas 11/22/2022 2 [employer] OPTIONS (MEDICARE SUPPLEMENT) Dena [place] Rojas [id number] Dena Celena Rojas 06/07/2024 1 [place] Dena Rojas [id number] Dena Rojas 06/07/2024 2 [employer] OPTIONS (MEDICARE SUPPLEMENT) Dena Rojas [id number] Dena Celena Rojas Notes Date Note Type Note Provider Name and Address Organization Details Recorded Time 11/22/2022 text/html Pt is here to f/ u on URI, mild improvement Kwame Butcher, DIRECTOR PUBLIC SERVICE-C [address], [address], [facility] 11/22/2022 17:08:31 06/07/2024 text/html The patient is [...] today with the patient. DAVE Cooley [address] [facility], [facility] [address], [place], [address], [facility] [employer] 06/07/2024 12:44:29 OBGyn Episode No OBEpisode recorded.
--- OUTSIDE RECORDS SUMMARY | 2024-06-21 10:17 | XMS_ITS | Clinical Summary ---
Author Organization [facility] Address [address] [place] [address] Care Team Providers Care Government Operations Consultant Name Role Phone Chanelle Ramsey NP Primary Care Provider [phone] Allergies Active Allergy Reactions Criticality Noted Date [...] High 01/05/2021 Sitagliptin Diarrhea,Stomach upset Low 01/05/2021 Lckszum-Wnd-Zub Reductase Inhibitors Joint pain,Other (See comments) Low [...] tablet by mouth daily 2 Active lancets (CodasystemTouch Delica Plus Lancet) 30 gauge misc USE DIRECTED CHECK BLOOD SUGAR ONCE A DAY Active blood-glucose meter (ON-S Segurança Onlineuch Ultra2 Meter) misc Active benzonatate (TESSALON) 200 mg capsule TAKE 1 CAPSULE BY MOUTH 3 TIMES A DAY NEEDED FOR COUGH Active CodasystemTouch Ultra Test strip USE TO TEST 3 [...] Comments Blood Pressure 137/81 01/17/2024 10:46 AM HISTORIOGRAPHY PROFESSOR Pulse 88 01/17/2024 10:46 AM HISTORIOGRAPHY PROFESSOR Temperature - - Respiratory Rate 20 01/17/2024 10:4 6 AM HISTORIOGRAPHY PROFESSOR Oxygen Saturation 98% 01/17/2024 10: 46 AM HISTORIOGRAPHY PROFESSOR Inhaled Oxygen Concentration - - Weight 96.5 kg (212 lb 12.8 oz) 024 10:46 AM HISTORIOGRAPHY PROFESSOR Height 166 cm (5' 5.35 ) 01/17/2024 10: 46 AM HISTORIOGRAPHY PROFESSOR Body Mass Index 35.03 01/17/2024 10:46 AM HISTORIOGRAPHY PROFESSOR Plan of Treatment Health Maintenance Due Date [...] Read Routine (OP Routine) 01/17/2024 11:55 AM HISTORIOGRAPHY PROFESSOR Discharge from right nipple Encounter for screening mammogram for malignant neoplasm of breast from Last 3 Months or Most Recently Relevant to Health Maintenance Results * Screening Mammogram Bilateral W Seema (01/17/2024 11:55 AM HISTORIOGRAPHY PROFESSOR) Anatomical Region Laterality Modality Breast Bilateral Mammography Narrative 01/18/2024 9:25 AM HISTORIOGRAPHY PROFESSOR Mammogram Technique: Bilateral Digital Breast Tomosynthesis, Bilateral C-view 2D Screening mammogram. Views obtained: bilateral craniocaudal and bilateral mediolateral oblique. Computer Aided Detection was performed. Mammogram Findings: The present examination has been compared to prior imaging studies performed at [facility] on 12/21/2021, 01/12/2022 and 01/04/2023. There [...] compared to prior imaging studies performed at [facility] on 12/21/2021, 01/12/2022 and 01/04/2023. There are scattered areas of fibroglandular density. There is no suspicious abnormality in either breast. Impression: There is no mammographic evidence of malignancy. Annual screening mammography is recommended. OVERALL FINAL ASSESSMENT: BI-RADS CATEGORY 1: Negative. Haven Thurston NP IMG MAMMO PROCEDURES Fi nal Result from Last 3 Months or Most Recently Relevant to Health [place] [address] MEDICARE [facility] MEDICARE [facility] Care Teams Government Operations Consultant Relationship Specialty Start Date End Date Chanelle Ramsey NP [address] [place] [id number] PCP - General Nurse Practitioner 01/17/24
--- OUTSIDE RECORDS SUMMARY | 2024-06-21 10:17 | XMS_ITS | Referral Summary ---
Author Organization [facility] Address [address] [place] [address] Care Team Providers Care Display Screen Fabricator Name Role Phone Chanelle Ramsey NP Primary Care Provider [phone] Allergies Active Allergy Reactions Criticality Noted Date [...] High 01/05/2021 Sitagliptin Diarrhea,Stomach upset Low 01/05/2021 Vymqddu-Fqw-Vby Reductase Inhibitors Joint pain,Other (See comments) Low [...] tablet by mouth daily 2 Active lancets (GINKGOTREETouch Delica Plus Lancet) 30 gauge misc USE DIRECTED CHECK BLOOD SUGAR ONCE A DAY Active blood-glucose meter (Norseuch Ultra2 Meter) misc Active benzonatate (TESSALON) 200 mg capsule TAKE 1 CAPSULE BY MOUTH 3 TIMES A DAY NEEDED FOR COUGH Active GINKGOTREETouch Ultra Test strip USE TO TEST 3 [...] Comments Blood Pressure 137/81 01/17/2024 10:46 AM FINISHING TRIMMER Pulse 88 01/17/2024 10:46 AM FINISHING TRIMMER Temperature - - Respiratory Rate 20 01/17/2024 10:4 6 AM FINISHING TRIMMER Oxygen Saturation 98% 01/17/2024 10: 46 AM FINISHING TRIMMER Inhaled Oxygen Concentration - - Weight 96.5 kg (212 lb 12.8 oz) 024 10:46 AM FINISHING TRIMMER Height 166 cm (5' 5.35 ) 01/17/2024 10: 46 AM FINISHING TRIMMER Body Mass Index 35.03 01/17/2024 10:46 AM FINISHING TRIMMER Plan of Treatment Not on file Procedures Procedure Name Priority Date/Time Associated Diagnosis Comments SCREENING MAMMOGRAM BILATERAL W SEEMA Schedule Routine, Read Routine (OP Routine) 01/17/2024 11:55 AM FINISHING TRIMMER Discharge from right nipple Encounter for screening mammogram for malignant neoplasm of breast from Last 3 Months or Most Recently Relevant to Health Maintenance Results * Screening Mammogram Bilateral W Seema (01/17/2024 11:55 AM FINISHING TRIMMER) Anatomical Region Laterality Modality Breast Bilateral Mammography Narrative 01/18/2024 9:25 AM FINISHING TRIMMER Mammogram Technique: Bilateral Digital Breast Tomosynthesis, Bilateral C-view 2D Screening mammogram. Views obtained: bilateral craniocaudal and bilateral mediolateral oblique. Computer Aided Detection was performed. Mammogram Findings: The present examination has been compared to prior imaging studies performed at [facility] on 12/21/2021, 01/12/2022 and 01/04/2023. There are [...] compared to prior imaging studies performed at [facility] on 12/21/2021, 01/12/2022 and 01/04/2023. There are scattered areas of fibroglandular density. There is no suspicious abnormality in either breast. Impression: There is no mammographic evidence of malignancy. Annual screening mammography is recommended. OVERALL FINAL ASSESSMENT: BI-RADS CATEGORY 1: Negative. Haven Thurston NP IMG MAMMO PROCEDURES Fi nal Result from Last 3 Months or Most Recently Relevant to Health Maintenance Insurance MEDICARE [facility] [place] [place] [address] MEDICARE [facility] Care Teams Display Screen Fabricator Relationship Specialty Start Date End Date Chanelle Ramsey NP [address] [place] [phone] PCP - General Nurse Practitioner 01/17/24
[2024-06-21 12:35] LABS: Appearance Synovial Fluid Hazy (Clear); Color Synovial Fluid Yellow (Colorless); Lymphocytes Synovial Fluid 32 %; Macrophages Synovial Fluid 32 %; Monocytes Synovial Fluid 19 %; Neutrophils Synovial Fluid 16 % (0-25); Nucleated Cell Synovial Fluid 703 /uL (0-200); RBC Synovial Fluid 14000 /uL (0-0); Source Synovial Fluid Rt Knee Syn Fluid
[2024-06-21 12:55] LABS: Crystals Synovial Fluid None Seen (None Seen)
== END 2024-06-21 10:04 | disposition home or self-care (01) ==
LOC: ANHIMG 10:05
PROVIDERS: PCP Nurse Practitioner Adult Health; Visit Provider Physician Assistant Surgical
DX: T85.698A Other mechanical complication of other specified internal prosthetic devices, implants and grafts, initial encounter (principal); T84.039A Mechanical loosening of unspecified internal prosthetic joint, initial encounter; Y84.8 Other medical procedures as the cause of abnormal reaction of the patient, or of later complication, without mention of misadventure at the time of the procedure; Y79.2 Prosthetic and other implants, materials and accessory orthopedic devices associated with adverse incidents; M25.561 Pain in right knee
CPT/HCPCS: 20611; 87070; 87075; 87205; 89051; 89060